=== PATIENT | female | born 1985 | race Caucasian/White ===

== ENCOUNTER → 2018-03-30 | Outpatient (CLI) | payer OTHER ==
[2018-03-30 12:35] LABS: Basophils % (A) 1 %; Eosinophils # (A) 0.1 k/uL (0-0.7); Eosinophils % (A) 2 %; HCT 41.6 % (34.0-46.0); HGB 14.3 gm/dL (11.4-16.0); Lymphocytes # (A) 1.7 k/uL (1.0-4.8); Lymphocytes % (A) 24 %; MCH 29.2 pg (25.0-35.0); MCHC 34.4 g/dL (31.0-37.0); MCV 85.1 fL (80.0-100.0); Mean Platelet Volume 6.8; Monocytes # (A) 0.3 k/uL (0-1.0); Monocytes % (A) 5 %; Neutrophils # (A) 4.6 k/uL (1.3-7.7); Neutrophils % (A) 67 %; Platelet Count 313 k/uL (150-450); RBC 4.89 m/uL (3.80-5.40); RDW 12.5 % (11.5-15.5); WBC 6.9 k/uL (3.8-10.6)
[2018-03-30 12:46] LABS: ALT 29 U/L (9-52); AST 22 U/L (14-36); Albumin 3.8 g/dL (3.5-5.0); Alkaline Phosphatase 80 U/L (38-126); Anion Gap 10 mmol/L; Blood Urea Nitrogen 14 mg/dL (7-17); Calcium 9.1 mg/dL (8.4-10.2); Carbon Dioxide 28 mmol/L (22-30); Chloride 103 mmol/L (98-107); Cholesterol 176 mg/dL (<200); Glucose 89 mg/dL (74-99); HDL Cholesterol 45 mg/dL (40-60); LDL Cholesterol,Calculated 114 mg/dL (0-99); Potassium 4.4 mmol/L (3.5-5.1); Sodium 141 mmol/L (137-145); Total Bilirubin 0.5 mg/dL (0.2-1.3); Total Protein 6.5 g/dL (6.3-8.2); Triglycerides 86 mg/dL (<150)
[2018-03-30 20:10] LABS: Hemoglobin A1C 5.2 % (4.0-6.0)
== END | disposition home or self-care (01) ==
LOC: LABWHC1 12:14
PROVIDERS: ATTEND Family Medicine
DX: R03.0 Elevated blood-pressure reading, without diagnosis of hypertension (principal); F41.9 Anxiety disorder, unspecified; E66.01 Morbid (severe) obesity due to excess calories; Z13.220 Encounter for screening for lipoid disorders
CPT/HCPCS: 36415; 80053; 80061; 82306; 83036; 84443; 85025

== ENCOUNTER 2021-08-07 18:30 | Emergency (ER) | payer OTHER ==
[2021-08-07 18:41] VITALS: RESP 18; TEMP 98
[2021-08-07] MEDS ORDERED: ONDANSETRON 4 MG/2 ML VIAL IVP STA (19:08)
[2021-08-07] MEDS ORDERED: SODIUM CHLORIDE 0.9% 1,000 ML IV STA (19:08)
[2021-08-07] MEDS ORDERED: KETOROLAC 15 MG/ML 1 ML VIAL IVP STA (19:08)
[2021-08-07] MEDS ORDERED: diphenhydrAMINE 50 MG/ML 1 ML VIAL IVP STA (19:08)
--- NOTE | 2021-08-07 19:38 | ED ---
Headache HPI - General Chief Complaint: Headache Stated Complaint: Headache/Blood in Stool Time Seen by Provider: 08/07/21 18:59 Mode of arrival: ambulatory Limitations: no limitations - History of Present Illness Initial Comments: Patient is a 35-year-old female with history of hypertension, presenting to the emergency Department with complaints of a headache right lateral ear pain that started last night. Patient is very anxious during triage. She states that she is supposed to get an MRI on her brain due to an abnormal finding on her eye exam. Patient states she has been googling her symptoms and MRI scans and can not sleep because she is stressing over this. She did schedule the MRI, its in 2 days. She denies any dizziness, lightheadedness, no chest pain or shortness of breath however she does feel like her heart is racing. She does admit to some mild nausea but no vomiting. She's had some diarrhea today. She thinks there may have been a small amount of blood in her however she did drink a red topped just prior to her diarrheal episode is not sure if it sat or not. She has not had any abdominal pain, no further blood in her stool. Pt's mother is here with her and states that she has just been stressing all day because of this. She has not tried anything for her headache at today. She denies being . She is no further complaints at the time. - Related Data Allergies Allergy/AdvReac Type Severity Reaction Status Date / Time No Known Allergies Allergy Verified 08/07/21 18:39 Review of Systems ROS Statement: Those systems with pertinent positive or pertinent negative responses have been documented in the HPI. ROS Other: All systems not noted in ROS Statement are negative. Past Medical History Past Medical History: Hypertension History of Any Multi-Drug Resistant Organisms: None Reported Past Surgical History: Section Past Psychological History: Anxiety Smoking Status: Never smoker Past Alcohol Use History: None Reported Past Drug Use History: Marijuana General Exam - General Exam Comments Initial Comments: GENERAL: Patient is well-developed and well-nourished. Patient is nontoxic and in no acute distress, very anxious. HEAD: Atraumatic, normocephalic. EYES: Pupils equal round and reactive to light, extraocular movements intact, sclera anicteric, conjunctiva are normal. Eyelids were unremarkable. ENT: TMs normal, nares patent, oropharynx clear without exudates. Moist mucous membranes. NECK: Normal range of motion, supple without lymphadenopathy or JVD. LUNGS: Unlabored respirations. Breath sounds clear to auscultation bilaterally and equal. No wheezes rales or rhonchi. HEART: Tachycardic rate and rhythm without murmurs, rubs or gallops. ABDOMEN: Soft, nontender, normoactive bowel sounds. No guarding, no rebound. No masses appreciated. : Deferred MUSCULOSKELETAL: Normal extremities with adequate strength and normal range of motion, no pitting or edema. No clubbing or cyanosis. NEUROLOGICAL: Patient is alert and oriented x 3. Motor and sensory are also intact. Cranial nerves II through XII grossly intact. Symmetrical smile. Normal speech, normal gait. PSYCH: Normal mood, normal affect. SKIN: Warm, Dry, normal turgor, no rashes or lesions noted. Limitations: no limitations Course Vital Signs 08/07/21 08/07/21 18:39 21:01 Temperature 98.0 F Pulse Rate 137 H 92 Respiratory 18 18 Rate Blood Pressure 181/114 159/97 O2 Sat by Pulse 96 95 Oximetry Medical Decision Making - Medical Decision Making She is a 35-year-old female here with complaints of a headache, bilateral ear pressure since yesterday. Patient is scheduled to have an MRI on her brain secondary to abnormal finding in her eye exam. She has been very stressed about this, is not sleeping because of this and is googling her symptoms and possible causes. She does have history hypertension, blood pressures elevated upon arrival and she is also tachycardic. Her mother states that she does have history anxiety and panic attacks. Patient's exam reveals no acute findings other than tachycardia. No acute neuro deficits. Patient was given fluids, pain control, reports improvement in her symptoms. To give her some Benadryl and a small dose of Ativan. She feels better and more relaxed. Patient's mother will be driving her home. Patient's vital signs were rechecked and are within normal limits. I discussed with patient that she can follow up with her primary care regarding her anxiety. She is agreeable to this and is stable for discharge. Return parameters were discussed with parents verbalized understanding. Case discussed with Dr. Latham. Disposition Clinical Impression: Headache, Anxiety Disposition: HOME SELF-CARE Condition: Stable Instructions (If sedation given, give patient instructions): Acute Headache (ED) Additional Instructions: Please return to the Emergency Department if symptoms worsen or any other concerns. May take a Benadryl at night to help with anxiety and to help with sleep. I recommend following up with your primary care physician. Is patient prescribed a controlled substance at d/c from ED?: No Referrals: Toribio Arnett MD [Primary Care Provider] - 1-2 days Time of Disposition: 21:12
[2021-08-07] MEDS ORDERED: LORazepam 2 MG/ML INJ IV STA (20:27)
[2021-08-07 21:04] VITALS: BP 159/97; PULSE 92
== END 2021-08-07 21:31 | disposition home or self-care (01) ==
LOC: EC 18:30
DX: R51.9 Headache, unspecified (principal); F41.9 Anxiety disorder, unspecified; H92.01 Otalgia, right ear; R11.0 Nausea; R19.7 Diarrhea, unspecified; I10 Essential (primary) hypertension
CPT/HCPCS: 99283; 96374; 96375; 96361; J2060; J1200; J2405; J1885

== ENCOUNTER 2021-08-09 18:32 | Emergency (ER) | payer OTHER ==
[2021-08-09] MEDS ORDERED: diphenhydrAMINE 50 MG/ML 1 ML VIAL IVP STA (19:10)
[2021-08-09] MEDS ORDERED: ONDANSETRON 4 MG/2 ML VIAL IVP STA (19:10)
[2021-08-09] MEDS ORDERED: SODIUM CHLORIDE 0.9% 1,000 ML IV STA (19:10)
[2021-08-09] MEDS ORDERED: MORPHINE SULFATE 4 MG/ML SYRINGE IV STA (19:10)
[2021-08-09 19:54] LABS: Basophils % (A) 0 %; Eosinophils # (A) 0.2 k/uL (0-0.7); Eosinophils % (A) 2 %; HGB 14.6 gm/dL (11.4-16.0); Lymphocytes # (A) 1.8 k/uL (1.0-4.8); Lymphocytes % (A) 17 %; MCH 27.4 pg (25.0-35.0); MCHC 33.1 g/dL (31.0-37.0); MCV 82.8 fL (80.0-100.0); Mean Platelet Volume 7.3; Monocytes # (A) 0.5 k/uL (0-1.0); Monocytes % (A) 5 %; Neutrophils % (A) 75 %; Platelet Count 414 k/uL (150-450); RBC 5.32 m/uL (3.80-5.40); RDW 13.8 % (11.5-15.5); WBC 10.7 k/uL (3.8-10.6)
[2021-08-09 20:11] LABS: ALT 31 U/L (4-34); AST 24 U/L (14-36); African American GFR (CKD) >90 (>60 ml/min/1.73 sqM); Albumin 4.4 g/dL (3.5-5.0); Alkaline Phosphatase 114 U/L (38-126); Anion Gap 13 mmol/L; Blood Urea Nitrogen 5 mg/dL (7-17); Calcium 9.5 mg/dL (8.4-10.2); Carbon Dioxide 20 mmol/L (22-30); Chloride 104 mmol/L (98-107); Glucose 120 mg/dL (74-99); Non-African American GFR(CKD) >90 (>60 ml/min/1.73 sqM); Potassium 3.8 mmol/L (3.5-5.1); Sodium 137 mmol/L (137-145); Total Bilirubin 0.5 mg/dL (0.2-1.3); Total Protein 7.7 g/dL (6.3-8.2)
[2021-08-09 20:59] VITALS: PULSE 92; RESP 20
[2021-08-09 21:05] LABS: Appearance,Urine Clear (Clear); Bilirubin,Urine Negative (Negative); Blood,Urine Negative (Negative); Color,Urine Light Yellow; Glucose,Urine (UA) Negative (Negative); Ketones,Urine 1+ (Negative); Leukocyte Esterase,Urine Negative (Negative); Nitrite,Urine Negative (Negative); PH, Urine 6.5 (5.0-8.0); Protein,Urine Negative (Negative); Specific Gravity,Urine 1.004 (1.001-1.035); Urobilinogen,Urine <2.0 mg/dL (<2.0)
[2021-08-09] MEDS ORDERED: ONDANSETRON 4 MG ODT STARTER PACK 2 TAB BTL PO STA (21:36)
[2021-08-09] MEDS ORDERED: ACET/COD 300 MG/30 MG STARTER PACK 6 TAB BTL PO STA (21:36)
--- NOTE | 2021-08-09 21:37 | ED ---
Headache HPI - General Chief Complaint: Headache Stated Complaint: revisit - headache Time Seen by Provider: 08/09/21 18:55 Source: patient, RN notes reviewed Mode of arrival: ambulatory Limitations: no limitations - History of Present Illness Initial Comments: Patient is a 35-year-old female that presents to emergency department complaining of a headache. She notes she had outpatient MRI done earlier this morning. She'll that she was also seen here several days ago for the same complaint. She notes that her headache has since gone on since a few days ago since about 8 out of 10 with no relief from at home medications. She denied any aggravating factors or alleviating factors she was otherwise a well-appearing 35-year-old female in no apparent distress or pain. She denied any chest pain shortness of breath vomiting diarrhea constipation fever fatigue chills. - Related Data Allergies Allergy/AdvReac Type Severity Reaction Status Date / Time No Known Allergies Allergy Verified 08/09/21 18:49 Review of Systems ROS Statement: Those systems with pertinent positive or pertinent negative responses have been documented in the HPI. ROS Other: All systems not noted in ROS Statement are negative. Past Medical History Past Medical History: Hypertension History of Any Multi-Drug Resistant Organisms: None Reported Past Surgical History: Section Past Psychological History: Anxiety Smoking Status: Never smoker Past Alcohol Use History: None Reported Past Drug Use History: Marijuana General Exam Limitations: no limitations General appearance: alert, in no apparent distress, obese Head exam: Present: atraumatic, normocephalic, normal inspection Eye exam: Present: normal appearance, PERRL, EOMI. Absent: scleral icterus, conjunctival injection, periorbital swelling Neck exam: Present: normal inspection Respiratory exam: Present: normal lung sounds bilaterally. Absent: respiratory distress, wheezes, rales, rhonchi, stridor Cardiovascular Exam: Present: regular rate, normal rhythm, normal heart sounds. Absent: systolic murmur, diastolic murmur, rubs, gallop, clicks GI/Abdominal exam: Present: soft, normal bowel sounds. Absent: distended, tenderness, guarding, rebound, rigid Extremities exam: Present: normal inspection, full ROM, normal capillary refill. Absent: tenderness, pedal edema, joint swelling, calf tenderness Neurological exam: Present: alert, oriented X3 Psychiatric exam: Present: normal affect, normal mood Skin exam: Present: warm, dry, intact, normal color. Absent: rash Course Vital Signs 08/09/21 08/09/21 18:45 20:00 Temperature 97.8 F Pulse Rate 91 92 Respiratory 18 20 Rate Blood Pressure 154/92 156/84 O2 Sat by Pulse 97 95 Oximetry Medical Decision Making - Medical Decision Making 35-year-old female complaining of headache. Basic labs, 1 L normal saline, 4 g of morphine, 4 mg of Zofran, 59 g Benadryl ordered. Labs unremarkable. Case discussed with Dr. Wiseman, patient discharge or follow up primary care. Tylenol 3 starter pack and Zofran starter pack will be given prior to discharge. - Lab Data Result diagrams: 08/09/21 19:29 08/09/21 19:29 Lab Results 08/09/21 08/09/21 08/09/21 Range/Units 19:29 19:29 19:29 WBC 10.7 H (3.8-10.6) k/uL RBC 5.32 (3.80-5.40) m/uL Hgb 14.6 (11.4-16.0) gm/dL Hct 44.0 (34.0-46.0) % MCV 82.8 (80.0-100.0) fL MCH 27.4 (25.0-35.0) pg MCHC 33.1 (31.0-37.0) g/dL RDW 13.8 (11.5-15.5) % Plt Count 414 (150-450) k/uL MPV 7.3 Neutrophils % 75 % Lymphocytes % 17 % Monocytes % 5 % Eosinophils % 2 % Basophils % 0 % Neutrophils # 8.0 H (1.3-7.7) k/uL Lymphocytes # 1.8 (1.0-4.8) k/uL Monocytes # 0.5 (0-1.0) k/uL Eosinophils # 0.2 (0-0.7) k/uL Basophils # 0.0 (0-0.2) k/uL Sodium 137 (137-145) mmol/L Potassium 3.8 (3.5-5.1) mmol/L Chloride 104 (98-107) mmol/L Carbon Dioxide 20 L (22-30) mmol/L Anion Gap 13 mmol/L BUN 5 L (7-17) mg/dL Creatinine 0.57 (0.52-1.04) mg/dL Est GFR (CKD-EPI)AfAm >90 (>60 ml/min/1.73 sqM) Est GFR (CKD-EPI)NonAf >90 (>60 ml/min/1.73 sqM) Glucose 120 H (74-99) mg/dL Calcium 9.5 (8.4-10.2) mg/dL Total Bilirubin 0.5 (0.2-1.3) mg/dL AST 24 (14-36) U/L ALT 31 (4-34) U/L Alkaline Phosphatase 114 (38-126) U/L Total Protein 7.7 (6.3-8.2) g/dL Albumin 4.4 (3.5-5.0) g/dL Urine Color Light Yellow Urine Appearance Clear (Clear) Urine pH 6.5 (5.0-8.0) Ur Specific [place] 1.004 (1.001-1.035) Urine Protein Negative (Negative) Urine Glucose (UA) Negative (Negative) Urine Ketones 1+ H (Negative) Urine Blood Negative (Negative) Urine Nitrite Negative (Negative) Urine Bilirubin Negative (Negative) Urine Urobilinogen <2.0 (<2.0) mg/dL Ur Leukocyte Esterase Negative (Negative) Disposition Clinical Impression: Headache Disposition: HOME SELF-CARE Condition: Stable Instructions (If sedation given, give patient instructions): Acute Headache (ED) Additional Instructions: Please return to the Emergency Department if symptoms worsen or any other concerns. Follow-up with primary care 1-2 days. Take medication as prescribed. Is patient prescribed a controlled substance at d/c from ED?: No Referrals: Toribio Arnett MD [Primary Care Provider] - 1-2 days Time of Disposition: 21:37
[2021-08-09 22:14] VITALS: BP 154/84; TEMP 98.4
== END 2021-08-09 22:19 | disposition home or self-care (01) ==
LOC: EC 18:32
DX: R51.9 Headache, unspecified (principal); I10 Essential (primary) hypertension; F12.90 Cannabis use, unspecified, uncomplicated; E66.9 Obesity, unspecified; Z68.43 Body mass index [BMI] 50.0-59.9, adult
CPT/HCPCS: 36415; 80053; 85025; 81003; 99284; 96374; 96375 ×2; 96376; 96361 ×2; J2270; J1200; J2405; S0119

== ENCOUNTER 2021-08-10 19:13 | Emergency (ER) | payer OTHER ==
[2021-08-10 19:30] VITALS: BP 164/110; PULSE 100; RESP 18; TEMP 98
[2021-08-10] MEDS ORDERED: LORazepam 2 MG/ML INJ IV STA (19:43)
[2021-08-10] MEDS ORDERED: MAG HYDROX/AL HYDROX/SIMETH 30 ML, HYOSCYAMINE ELIXIR 10 ML, LIDOCAINE VISCOUS 2% 10 ML PO STA ×3 (19:44)
[2021-08-10] MEDS ORDERED: LORazepam 2 MG/ML INJ IM STA (19:48)
[2021-08-10] MEDS ORDERED: LORazepam 1 MG TAB PO STA (20:43)
--- NOTE | 2021-08-10 20:44 | ED ---
Anxiety HPI - General Chief Complaint: Anxiety Stated Complaint: ear pain Time Seen by Provider: 08/10/21 19:39 Source: patient, RN notes reviewed Mode of arrival: ambulatory - History of Present Illness Initial Comments: Patient is a 35-year-old female that presents to the emergency department complaining of anxiety. She notes that she had an MRI done yesterday morning is been ongoing looking up her symptoms and has increased her stress. She notes that the first time she can emergency room she Ativan which helped her sleep well. She notes that she had difficulty sleeping is anxious and stressed out waiting for results. She's been seen 3 times including today in the past 3 days in the ER. She was otherwise well-appearing 35-year-old female no apparent distress or pain. She denied chest pain shortness of breath headache nausea vomiting diarrhea constipation fever fatigue chills. - Related Data Allergies/Adverse Reactions: Allergies Allergy/AdvReac Type Severity Reaction Status Date / Time No Known Allergies Allergy Verified 08/10/21 19:30 Review of Systems ROS Statement: Those systems with pertinent positive or pertinent negative responses have been documented in the HPI. ROS Other: All systems not noted in ROS Statement are negative. Past Medical History Past Medical History: Hypertension History of Any Multi-Drug Resistant Organisms: None Reported Past Surgical History: Section Past Psychological History: Anxiety Smoking Status: Never smoker Past Alcohol Use History: None Reported Past Drug Use History: Marijuana General Exam General appearance: alert, in no apparent distress, anxious, obese Head exam: Present: atraumatic, normocephalic, normal inspection Eye exam: Present: normal appearance, PERRL, EOMI. Absent: scleral icterus, conjunctival injection, periorbital swelling ENT exam: Present: normal exam, mucous membranes moist, TM's normal bilaterally Neck exam: Present: normal inspection Respiratory exam: Present: normal lung sounds bilaterally. Absent: respiratory distress, wheezes, rales, rhonchi, stridor Cardiovascular Exam: Present: regular rate, normal rhythm, normal heart sounds. Absent: systolic murmur, diastolic murmur, rubs, gallop, clicks GI/Abdominal exam: Present: soft, normal bowel sounds. Absent: distended, tenderness, guarding, rebound, rigid Extremities exam: Present: normal inspection, full ROM, normal capillary refill. Absent: tenderness, pedal edema, joint swelling, calf tenderness Neurological exam: Present: alert, oriented X3 Psychiatric exam: Present: normal affect, normal mood Skin exam: Present: warm, dry, intact, normal color. Absent: rash Course Vital Signs 08/10/21 19:26 Temperature 98 F Pulse Rate 100 Respiratory 18 Rate Blood Pressure 164/110 O2 Sat by Pulse 94 L Oximetry Medical Decision Making - Medical Decision Making 35-year-old female complaining anxiety. Seen 3 times in the last 3 days in the emergency Department for the same complaint. 1 mg of Ativan, GI cocktail given for heartburn. Patient was informed that she needs to contact her primary care for anxiety medications. Patient was also informed to refrain from doing her symptoms as it can cause unnecessary stress and anxiety. Case discussed with Dr. Morales, patient discharge home. Disposition Clinical Impression: Anxiety Disposition: HOME SELF-CARE Condition: Stable Instructions (If sedation given, give patient instructions): Generalized Anxiety Disorder (ED) Additional Instructions: Please return to the Emergency Department if symptoms worsen or any other concerns. Follow-up with primary care for concerns with anxiety medication. Is patient prescribed a controlled substance at d/c from ED?: No Referrals: Toribio Arnett MD [Primary Care Provider] - 1-2 days Time of Disposition: 20:43
== END 2021-08-10 20:56 | disposition home or self-care (01) ==
LOC: EC 19:13
DX: F41.9 Anxiety disorder, unspecified (principal); I10 Essential (primary) hypertension
CPT/HCPCS: 99283; 96372; J2060

== ENCOUNTER 2021-09-28 22:11 | Emergency (ER) | payer OTHER ==
[2021-09-28 22:27] VITALS: TEMP 98.3
[2021-09-28 23:27] LABS: Appearance,Urine Clear (Clear); Bacteria,Urine Rare /hpf; Bilirubin,Urine Negative (Negative); Blood,Urine Trace (Negative); Color,Urine Yellow; Glucose,Urine (UA) Negative (Negative); Ketones,Urine Negative (Negative); Leukocyte Esterase,Urine Negative (Negative); Mucus,Urine Rare /hpf; Nitrite,Urine Negative (Negative); PH, Urine 6.5 (5.0-8.0); Protein,Urine Negative (Negative); RBC,Urine 1 /hpf (0-5); Specific Gravity,Urine 1.024 (1.001-1.035); Squamous Epithelial Cell,Urine 1 /hpf (0-4); Urobilinogen,Urine <2.0 mg/dL (<2.0); WBC,Urine 1 /hpf (0-5)
[2021-09-28] MEDS ORDERED: KETOROLAC 15 MG/ML 1 ML VIAL IVP STA (23:41)
--- NOTE | 2021-09-28 23:45 | XR ---
EXAMINATION TYPE: XR chest 2V DATE OF EXAM: 09/28/2021 COMPARISON: 08/14/2010 HISTORY: Back pain TECHNIQUE: 2 views FINDINGS: Heart and mediastinum are normal. Lungs are clear. Diaphragm is normal. Bony thorax is inta ct. IMPRESSION: Normal chest. No change.
--- NOTE | 2021-09-29 00:25 | CT ---
EXAMINATION TYPE: CT abdomen pelvis wo con DATE OF EXAM: 09/28/2021 COMPARISON: None HISTORY: right side flank pain. CT DLP: 2126.90 mGycm Automated exposure control for dose reduction was used. Images obtained from the diaphragm to the floor the pelvis without contrast. Lung bases are clear. There is no pleural effusion. Heart size is normal. There is no pericardial eff usion. Liver spleen stomach pancreas gallbladder appear intact. The bile ducts are not dilated. There is 3 cm rounded fluid density in the right adnexal region consistent with ovarian cyst. Kidneys show normal size and contour. There is no hydronephrosis. Ureters are not dilated. Bladder distends smoothly. There is no inguinal hernia. There is no free fluid in the pelvis. Lumbar vertebra have normal alignment. Posterior elements are intact. There is no compression fractur e. Bony pelvis is intact. The hip joints are intact. There is no mesenteric edema. There is no ascites or free air. There is no sign of a bowel obstructio n. Terminal ileum appears normal. Appendix appears normal. IMPRESSION: Multiple appendix. 3 cm right ovarian cyst noted.
[2021-09-29 00:39] LABS: Basophils % (A) 0 %; Eosinophils # (A) 0.2 k/uL (0-0.7); Eosinophils % (A) 2 %; HCT 37.5 % (34.0-46.0); HGB 12.5 gm/dL (11.4-16.0); Lymphocytes # (A) 1.8 k/uL (1.0-4.8); Lymphocytes % (A) 19 %; MCH 27.7 pg (25.0-35.0); MCHC 33.3 g/dL (31.0-37.0); MCV 83.3 fL (80.0-100.0); Mean Platelet Volume 7.2; Monocytes # (A) 0.4 k/uL (0-1.0); Monocytes % (A) 4 %; Neutrophils # (A) 6.9 k/uL (1.3-7.7); Neutrophils % (A) 74 %; Platelet Count 382 k/uL (150-450); RDW 14.5 % (11.5-15.5); WBC 9.4 k/uL (3.8-10.6)
[2021-09-29 00:54] VITALS: BP 178/111; PULSE 82; RESP 18
[2021-09-29 01:06] LABS: ALT 23 U/L (4-34); AST 20 U/L (14-36); African American GFR (CKD) >90 (>60 ml/min/1.73 sqM); Alkaline Phosphatase 87 U/L (38-126); Anion Gap 9 mmol/L; Blood Urea Nitrogen 15 mg/dL (7-17); Calcium 9.2 mg/dL (8.4-10.2); Carbon Dioxide 24 mmol/L (22-30); Chloride 103 mmol/L (98-107); Glucose 125 mg/dL (74-99); Lipase 113 U/L (23-300); Non-African American GFR(CKD) >90 (>60 ml/min/1.73 sqM); Potassium 4.1 mmol/L (3.5-5.1); Sodium 136 mmol/L (137-145); Total Bilirubin 0.3 mg/dL (0.2-1.3); Total Protein 6.9 g/dL (6.3-8.2)
[2021-09-29] MEDS ORDERED: CYCLOBENZAPRINE 10MG STARTER 3 TAB BTL PO STA (01:09)
--- NOTE | 2021-09-29 01:09 | ED ---
Back Pain HPI - General Chief Complaint: Back Pain/Injury Stated Complaint: Back Pain Time Seen by Provider: 09/28/21 22:36 Source: patient Limitations: no limitations - History of Present Illness Initial Comments: 36 year-old female patient presents to the emergency department for evaluation of right flank pain and mid upper back pain. States that symptoms have been going on for a month. States the pain is mild and vague but annoying. States she did take ibuprofen without relief. States the pain is intermittent. Feels like an intense tightness. Denies fever or chills. Denies abdominal pain. Denies any hematuria, dysuria, urinary urgency, or frequency. Denies nausea or vomiting. Has had three c-sections, denies any other abdominal surgeries. Denies any falls or injuries. Denies worsening pain with movement or deep breathing. Denies chance of . Patient denies any recent rash, cough, shortness of breath, chest pain, diarrhea, constipation, numbness, tingling, dizziness, weakness, headache, visual changes, or any other complaints. - Related Data Previous Rx's Medication Instructions Recorded Cyclobenzaprine [Flexeril] 10 mg PO TID #15 tab 09/29/21 Allergies Allergy/AdvReac Type Severity Reaction Status Date / Time No Known Allergies Allergy Verified 09/28/21 22:27 Review of Systems ROS Statement: Those systems with pertinent positive or pertinent negative responses have been documented in the HPI. ROS Other: All systems not noted in ROS Statement are negative. Past Medical History Past Medical History: GERD/Reflux, Hypertension History of Any Multi-Drug Resistant Organisms: None Reported Past Surgical History: Section Past Psychological History: Anxiety Smoking Status: Never smoker Past Alcohol Use History: None Reported Past Drug Use History: Marijuana General Exam Limitations: no limitations General appearance: alert, in no apparent distress, other (This is a well- developed, well-nourished adult female patient in no acute distress.) Eye exam: Present: normal appearance, PERRL, EOMI. Absent: scleral icterus, conjunctival injection, periorbital swelling ENT exam: Present: normal exam, normal oropharynx, mucous membranes moist Respiratory exam: Present: normal lung sounds bilaterally. Absent: respiratory distress, wheezes, rales, rhonchi, stridor Cardiovascular Exam: Present: regular rate, normal rhythm, normal heart sounds. Absent: systolic murmur, diastolic murmur, rubs, gallop, clicks GI/Abdominal exam: Present: soft, normal bowel sounds. Absent: distended, tenderness, guarding, rebound, rigid Back exam: Present: normal inspection. Absent: CVA tenderness (R), CVA tenderness (L) Neurological exam: Present: alert, oriented X3, CN II-XII intact Psychiatric exam: Present: normal affect, normal mood Skin exam: Present: warm, dry, intact, normal color. Absent: rash Course Vital Signs 09/28/21 09/29/21 09/29/21 22:24 00:18 00:51 Temperature 98.3 F Pulse Rate 87 78 82 Respiratory 20 16 18 Rate Blood Pressure 149/86 178/111 O2 Sat by Pulse 98 98 98 Oximetry Medical Decision Making - Medical Decision Making 36-year-old female patient presents to the emergency department today for evaluation of mid upper back pain right flank pain. Physical examination was unremarkable. Urinalysis was obtained initially and showed presence of blood. Given flank pain did have labs and CT abdomen and pelvis to rule out kidney stone. CT did show right ovarian cyst no other abnormalities. Labs are unremarkable. Did discuss findings results with the patient. She'll be discharged with Flexeril for musculoskeletal back pain and instructed take ibuprofen. Return parameters were discussed in detail. She verbalizes understanding and agrees with this plan. My attending is Dr. Solis. - Lab Data Result diagrams: 09/29/21 00:05 09/29/21 00:05 Lab Results 09/28/21 09/29/21 09/29/21 Range/Units 22:56 00:05 00:05 WBC 9.4 (3.8-10.6) k/uL RBC 4.50 (3.80-5.40) m/uL Hgb 12.5 (11.4-16.0) gm/dL Hct 37.5 (34.0-46.0) % MCV 83.3 (80.0-100.0) fL MCH 27.7 (25.0-35.0) pg MCHC 33.3 (31.0-37.0) g/dL RDW 14.5 (11.5-15.5) % Plt Count 382 (150-450) k/uL MPV 7.2 Neutrophils % 74 % Lymphocytes % 19 % Monocytes % 4 % Eosinophils % 2 % Basophils % 0 % Neutrophils # 6.9 (1.3-7.7) k/uL Lymphocytes # 1.8 (1.0-4.8) k/uL Monocytes # 0.4 (0-1.0) k/uL Eosinophils # 0.2 (0-0.7) k/uL Basophils # 0.0 (0-0.2) k/uL Sodium (137-145) mmol/L Potassium (3.5-5.1) mmol/L Chloride (98-107) mmol/L Carbon Dioxide (22-30) mmol/L Anion Gap mmol/L BUN (7-17) mg/dL Creatinine (0.52-1.04) mg/dL Est GFR (CKD-EPI)AfAm (>60 ml/min/1.73 sqM) Est GFR (CKD-EPI)NonAf (>60 ml/min/1.73 sqM) Glucose (74-99) mg/dL Calcium (8.4-10.2) mg/dL Total Bilirubin (0.2-1.3) mg/dL AST (14-36) U/L ALT (4-34) U/L Alkaline Phosphatase (38-126) U/L Total Protein (6.3-8.2) g/dL Albumin (3.5-5.0) g/dL Lipase (23-300) U/L Urine Color Yellow Urine Appearance Clear (Clear) Urine pH 6.5 (5.0-8.0) Ur Specific [place] 1.024 (1.001-1.035) Urine Protein Negative (Negative) Urine Glucose (UA) Negative (Negative) Urine Ketones Negative (Negative) Urine Blood Trace H (Negative) Urine Nitrite Negative (Negative) Urine Bilirubin Negative (Negative) Urine Urobilinogen <2.0 (<2.0) mg/dL Ur Leukocyte Esterase Negative (Negative) Urine RBC 1 (0-5) /hpf Urine WBC 1 (0-5) /hpf Ur Squamous Epith Cells 1 (0-4) /hpf Urine Bacteria Rare H (None) /hpf Urine Mucus Rare H (None) /hpf Urine HCG, Qual Not Detected (Not Detectd) 09/29/21 Range/Units 00:05 WBC (3.8-10.6) k/uL RBC (3.80-5.40) m/uL Hgb (11.4-16.0) gm/dL Hct (34.0-46.0) % MCV (80.0-100.0) fL MCH (25.0-35.0) pg MCHC (31.0-37.0) g/dL RDW (11.5-15.5) % Plt Count (150-450) k/uL MPV Neutrophils % % Lymphocytes % % Monocytes % % Eosinophils % % Basophils % % Neutrophils # (1.3-7.7) k/uL Lymphocytes # (1.0-4.8) k/uL Monocytes # (0-1.0) k/uL Eosinophils # (0-0.7) k/uL Basophils # (0-0.2) k/uL Sodium 136 L (137-145) mmol/L Potassium 4.1 (3.5-5.1) mmol/L Chloride 103 (98-107) mmol/L Carbon Dioxide 24 (22-30) mmol/L Anion Gap 9 mmol/L BUN 15 (7-17) mg/dL Creatinine 0.62 (0.52-1.04) mg/dL Est GFR (CKD-EPI)AfAm >90 (>60 ml/min/1.73 sqM) Est GFR (CKD-EPI)NonAf >90 (>60 ml/min/1.73 sqM) Glucose 125 H (74-99) mg/dL Calcium 9.2 (8.4-10.2) mg/dL Total Bilirubin 0.3 (0.2-1.3) mg/dL AST 20 (14-36) U/L ALT 23 (4-34) U/L Alkaline Phosphatase 87 (38-126) U/L Total Protein 6.9 (6.3-8.2) g/dL Albumin 4.0 (3.5-5.0) g/dL Lipase 113 (23-300) U/L Urine Color Urine Appearance (Clear) Urine pH (5.0-8.0) Ur Specific [place] (1.001-1.035) Urine Protein (Negative) Urine Glucose (UA) (Negative) Urine Ketones (Negative) Urine Blood (Negative) Urine Nitrite (Negative) Urine Bilirubin (Negative) Urine Urobilinogen (<2.0) mg/dL Ur Leukocyte Esterase (Negative) Urine RBC (0-5) /hpf Urine WBC (0-5) /hpf Ur Squamous Epith Cells (0-4) /hpf Urine Bacteria (None) /hpf Urine Mucus (None) /hpf Urine HCG, Qual (Not Detectd) - Radiology Data Radiology results: report reviewed, image reviewed 2 views of the chest are obtained. Report was reviewed in its entirety. Imp ression by Dr. Edwards shows normal chest. No change. CT abdomen and pelvis without contrast was obtained. Report is reviewed in its entirety. Impression by Dr. Edwards shows normal appendix. 2 cm right ovarian cyst noted. Disposition Clinical Impression: Back pain, Right ovarian cyst Disposition: HOME SELF-CARE Condition: Good Instructions (If sedation given, give patient instructions): Flank Pain (ED), Back Pain (ED) Additional Instructions: Alternate Tylenol Motrin for pain control. Follow-up through primary care physician for recheck in 1-2 days. Return for any new, worsening, or concerning symptoms. Prescriptions: Cyclobenzaprine [Flexeril] 10 mg PO TID #15 tab Is patient prescribed a controlled substance at d/c from ED?: No Referrals: Toribio Arnett MD [Primary Care Provider] - 1-2 days Time of Disposition: 01:09
== END 2021-09-29 01:23 | disposition home or self-care (01) ==
LOC: EC 22:11
DX: N83.201 Unspecified ovarian cyst, right side (principal); M54.9 Dorsalgia, unspecified; K21.9 Gastro-esophageal reflux disease without esophagitis; I10 Essential (primary) hypertension; F41.9 Anxiety disorder, unspecified; F12.90 Cannabis use, unspecified, uncomplicated
CPT/HCPCS: 99284; 96374; 36415; 80053; 83690; 85025; 81001; 81025; 71046; 74176; J1885

== ENCOUNTER → 2021-10-14 | Outpatient (CLI) | payer OTHER ==
--- NOTE | 2021-10-14 13:22 | US ---
EXAMINATION TYPE: US abdomen comp/pelvis limited DATE OF EXAM: 10/14/2021 COMPARISON: CT 09/28/2021 CLINICAL HISTORY: 36-year-old female R10.9 ABDOMINAL PAIN. Hematuria, right flank pain. TECHNIQUE: Multiple sonographic images of the abdomen and bladder are obtained. FINDINGS: EXAM MEASUREMENTS: Liver Length: 14.8 cm Gallbladder Wall: 0.2 cm CBD: 0.3 cm Spleen: 11.8 cm Right Kidney: 13.9 x 4.7 x 6.6 cm Left Kidney: 13.3 x 5.3 x 7.2 cm Pancreas: Only a small portion of pancreatic body is seen. Suboptimal visualization of the pancreati c head and tail due to shadowing from bowel gas. Liver: Heterogeneous, echogenic, and attenuating. No focal lesion identified. Gallbladder: No stones seen CBD: wnl Spleen: wnl Right Kidney: No hydronephrosis or masses seen Left Kidney: No hydronephrosis or masses seen Upper IVC: wnl Abd Aorta: wnl Bladder: Underdistention limits evaluation. IMPRESSION: 1. Very heterogeneous liver parenchyma suggesting either fatty infiltration or nonspecific hepatocell ular disease. Correlate with LFTs, lipid profile, and patient risk factors. 2. No hydronephrosis.
== END | disposition home or self-care (01) ==
LOC: RADUSWWP 09:04
PROVIDERS: ATTEND Family Medicine
DX: R10.9 Unspecified abdominal pain (principal); R31.9 Hematuria, unspecified
CPT/HCPCS: 76700; 76857

== ENCOUNTER → 2021-12-18 | Outpatient (CLI) | payer OTHER ==
--- NOTE | 2021-12-18 15:35 | US ---
EXAMINATION TYPE: US transvaginal DATE OF EXAM: 12/18/2021 COMPARISON: NONE CLINICAL HISTORY: N83.209 unspecified ovarian cyst. Follow up ovarian cyst, 3, para 3, histor y of 3 c-sections TECHNIQUE: Transvaginal exam only per ordering physician Date of LMP: 12/16/2021 EXAM MEASUREMENTS: Uterus: 9.8 x 4.4 x 4.5 cm Endometrial Stripe: 0.5 cm Right Ovary: not seen Left Ovary: not seen Difficult and limited study due to patient body habitus 1. Uterus: limited visualization due to position 2. Endometrium: appears wnl 3. Right Ovary: not seen due to overlying bowel gas 4. Left Ovary: not seen due to overlying bowel gas 5. Bilateral Adnexa: wnl 6. Posterior cul-de-sac: wnl IMPRESSION: No distinct abnormality appreciated.
== END | disposition home or self-care (01) ==
LOC: RADUSWWP 15:00
PROVIDERS: ATTEND Family Medicine
DX: N83.209 Unspecified ovarian cyst, unspecified side (principal)
CPT/HCPCS: 76830

== ENCOUNTER → 2022-07-04 | Emergency (ER) | payer OTHER ==
[2022-07-04 19:32] VITALS: BP 179/92; PULSE 104; RESP 22; TEMP 98.3
--- NOTE | 2022-07-04 19:53 | ED ---
ENT HPI - General Chief complaint: ENT Stated complaint: R ear pain Time Seen by Provider: 07/04/22 19:34 Source: patient Mode of arrival: ambulatory Limitations: no limitations - History of Present Illness Initial comments: Patient is a 36-year-old female who presents to the emergency department with a chief complaint of right ear pain. Patient states the pain started last week ago. States the pain is mild but consistent. Patient went to urgent care a couple days ago and was given antibiotic drops for external ear infection. Patient states the drops are not working. Patient denies fever, chills, headache, runny nose, congestion, sore throat, cough, shortness of breath, chest pain. Denies trauma to the ear. Denies recent swimming. Does admit to history of seasonal allergies. - Related Data Previous Rx's Medication Instructions Recorded Cyclobenzaprine [Flexeril] 10 mg PO TID #15 tab 09/29/21 Allergies Allergy/AdvReac Type Severity Reaction Status Date / Time No Known Allergies Allergy Verified 07/04/22 19:32 Review of Systems ROS Statement: Those systems with pertinent positive or pertinent negative responses have been documented in the HPI. ROS Other: All systems not noted in ROS Statement are negative. Past Medical History Past Medical History: GERD/Reflux, Hypertension History of Any Multi-Drug Resistant Organisms: None Reported Past Surgical History: Section Past Psychological History: Anxiety Smoking Status: Never smoker Past Alcohol Use History: None Reported Past Drug Use History: Marijuana General Exam Limitations: no limitations General appearance: alert, in no apparent distress Head exam: Present: atraumatic, normocephalic, normal inspection Eye exam: Present: normal appearance, PERRL, EOMI. Absent: scleral icterus, conjunctival injection, periorbital swelling ENT exam: Present: normal oropharynx, normal external ear exam. Absent: TM's normal bilaterally (right ear: Non-erythematous ear canal. No erythema or bulging of the tympanic membrane. Serous fluid behind membrane) Respiratory exam: Present: normal lung sounds bilaterally. Absent: respiratory distress, wheezes, rales, rhonchi, stridor Cardiovascular Exam: Present: regular rate, normal rhythm, normal heart sounds. Absent: systolic murmur, diastolic murmur, rubs, gallop, clicks GI/Abdominal exam: Present: soft, normal bowel sounds. Absent: distended, tenderness, guarding, rebound, rigid Neurological exam: Present: alert, oriented X3, CN II-XII intact Psychiatric exam: Present: normal affect, normal mood Skin exam: Present: warm, dry, intact, normal color. Absent: rash Course Vital Signs 07/04/22 19:28 Temperature 98.3 F Pulse Rate 104 H Respiratory 22 Rate Blood Pressure 179/92 O2 Sat by Pulse 96 Oximetry Medical Decision Making - Medical Decision Making This is a 36-year-old female presents with mild right ear pain. Thorough history and examination were performed. There is effusion behind the right tympanic membrane without erythema or bulging. The ear canal is non- erythematous. There is no tenderness with palpation of the mastoid bone. The pharynx is normal-appearing with no erythema, exudate, or swelling. Patient to take Zyrtec and Flonase for right ear effusion. She is instructed to stop using antibiotic eardrops. She is instructed to return if she develops fever or worsening symptoms. Blood pressure elevated in the emergency department. Patient states she takes lisinopril daily for blood pressure. States her blood pressure was normal at urgent care a couple days ago. Patient states she follows with her regular care provider closely for her blood pressure. Dr. De Jesus is my attending. Disposition Clinical Impression: Acute effusion of left ear Disposition: HOME SELF-CARE Condition: Good Instructions (If sedation given, give patient instructions): Fluid In The Ear (Serous Otitis Media) (ED) Additional Instructions: Take [id number] Claritin and Flonase for the next 2 weeks. If you develop a fever please seek medical attention. Return to the emergency department if you experience new, concerning, or worsening symptoms. Is patient prescribed a controlled substance at d/c from ED?: No Referrals: Toribio Arnett MD [Primary Care Provider] - 1-2 days Time of Disposition: 19:53
== END | disposition home or self-care (01) ==
LOC: EC 19:26
DX: H92.01 Otalgia, right ear (principal); I10 Essential (primary) hypertension

== ENCOUNTER 2022-07-29 06:20 | Day surgery (SDC) | payer OTHER ==
[2022-07-29] MEDS ORDERED: LACTATED RINGERS 1,000 ML IV ONE (06:35)
[2022-07-29 06:50] VITALS: TEMP 96.7
[2022-07-29] MEDS ORDERED: MIDAZOLAM 2 MG/2 ML VIAL IVP ONE (07:05)
[2022-07-29] MEDS ORDERED: LACTATED RINGERS 1,000 ML IV SCH (07:15)
[2022-07-29] MEDS ORDERED: MIDAZOLAM 2 MG/2 ML VIAL ONE (07:26)
[2022-07-29] MEDS ORDERED: fentaNYL (PF) 50 MCG/ML 2 ML AMP ONE (07:26)
--- NOTE | 2022-07-29 08:32 | FL ---
EXAMINATION TYPE: FL guided pain mgmt statistic DATE OF EXAM: 07/29/2022 CLINICAL HISTORY: Low back pain. TECHNIQUE: Fluoroscopy. COMPARISON: None. FINDINGS: Fluoroscopic guidance was provided during pain relief procedure performed by Dr. Simpson. A total of 68 seconds of fluoroscopic time was utilized during the procedure and 1 spot images are a cquired. Single limited acquired shows needle localization at the posterior L4-L5 level. IMPRESSION: As Above.
[2022-07-29] MEDS ORDERED: IV FLUID CONTINUATION 600 ML IV ONE (08:53)
[2022-07-29 08:54] VITALS: RESP 16
--- NOTE | 2022-07-29 08:58 | P.PCN ---
Date of Procedure: 07/29/22 Description of Procedure: Procedure: 1. Lumbar puncture for CSF collection under fluoroscopic PREOPERATIVE DIAGNOSIS: Suspected optic neuritis, eye pain POSTOPERATIVE DIAGNOSIS: Suspected optic neuritis, and eye pain SURGEON: Adrián Simpson ANESTHESIA: Local with 1% lidocaine, and IV sedation : Versed 2 mg, and fentanyl 50 g Sedation supervision start time: 7:30 Sedation supervision end time: 8:46 EBL: None. Specimen removed: 20 mL of CSF in each collecting tube X4 PROCEDURE INDICATION: The patient had history of headache, throbbing type pain. 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 Consulted for lumbar puncture for CSF opening, and closing pressures and CSF collection send it for analysis. PROCEDURE DESCRIPTION: The patient was seen and identified. Risks, benefits, complications, and alternatives were discussed with the patient. The patient agreed to proceed with the procedure and signed the consent, and vital signs were stable. Patient was taken to the procedure area, and time out was completed. The patient was placed in lateral position on procedure. The lumbosacral area was prepped and draped in the usual sterile fashion. Critical pause was taken. Vital signs were closely monitored during the procedure. Posterior superior iliac crest landmarks was identified . The midline lumbar space also identified. Approximately at the level of L4-L5 interspinous space, skin and deeper tissues were localized with 5 mL of 1% lidocaine. Using a 22 gauge 5 spinal needle entered into subarachnoid space, with 2 attempts. Unable to enter into the subarachnoid space, using fluoroscopy in lateral position unable to enter into the subarachnoid space. At this point patient safely turn on her belly, file used under her belly for minimize lumbar lordosis. Skin cleaned with ChloraPrep 2, sterile drapes applied. Again using AP fluoroscopic view L4-L5 interspinous space identified. 4 mL of 1% lidocaine injected for skin and subcutaneous tissue. Needle advanced under fluoroscopic guidance. A lateral view obtained and needle entered close to 2 cm away from epidural space. Then patient turned towards lateral side of the patient. Patient did not notice any shooting pain radiating to her lower extremities. Then needle advanced few centimeters deep. Then Clear CSF came out of the spinal needle notice. 5 mL of CSF fluid collected in each tube 4. Needle was withdrawn intact, skin was cleansed, and bandages were applied. Opening CSF pressure: 29 cm Closing CSF pressure: 14 cm. COMPLICATIONS: None. DISPOSITION / PLANS: The patient was placed in a supine position and transferred to the recovery area in a stable condition for observation. Patient was discharged from the recovery room after meeting discharge criteria. Home discharge instructions given to the patient by the staff. Patient recommended to drink plenty of fluid up to a gallon per day. Patient also recommended to take Tylenol 500 mg every 6 hours as needed if noticed any headache. Also discussed with the patient if noticed any red flag symptoms like unbearable headache, fever, neck stiffness, bowel or bladder problems recommended to come to the nearest emergency. The patient was reexamined prior to discharge.
[2022-07-29 09:34] VITALS: BP 127/75; PULSE 62
[2022-07-29 22:49] LABS: Glucose,CSF 64 mg/dL (40-70); Total Protein,CSF 38 mg/dL (12-60)
== END 2022-07-29 09:47 | disposition home or self-care (01) ==
LOC: ORPAIN 06:20
DX: H46.03 Optic papillitis, bilateral (principal)
CPT/HCPCS: 81025; 84157; 82945; 62270; J2250; J3010; 88108; 99152; 99153

== ENCOUNTER 2022-08-15 19:28 | Emergency (ER) | payer OTHER ==
[2022-08-15 20:10] VITALS: TEMP 98.2
[2022-08-16] MEDS ORDERED: KETOROLAC 15 MG/ML 1 ML VIAL IM STA (00:46)
--- NOTE | 2022-08-16 00:47 | ED ---
Headache HPI - General Chief Complaint: Headache Stated Complaint: Eye issues,Headache Time Seen by Provider: 08/15/22 23:52 Mode of arrival: ambulatory Limitations: no limitations - History of Present Illness Initial Comments: Patient is a 36-year-old female presenting with chief complaint of tingling to the right side of the face. Patient states that earlier today she fell lives on sensation, this was accompanied by mild headache. Patient noted that at the time her blood pressure was elevated, she states that in the past she has had headaches with elevated blood pressure. At the time of presentation patient states that symptoms have completely dissipated. Patient currently follows with neurology for papilledema discovered on routine eye exam, recently received MRI and lumbar puncture. She denies any headache, vision or hearing changes, nausea, vomiting, chest pain, shortness of breath, numbness, tingling, weakness, abdominal pain, dysuria, hematuria. - Related Data Home Medications Medication Instructions Recorded Confirmed Citalopram Hydrobromide [CeleXA] 20 mg PO DAILY 07/25/22 07/25/22 Lisinopril-Hctz 10-12.5 mg 1 tab PO DAILY 07/25/22 07/25/22 [Zestoretic 10-12.5] Allergies Allergy/AdvReac Type Severity Reaction Status Date / Time No Known Allergies Allergy Verified 08/15/22 20:10 Review of Systems ROS Statement: Those systems with pertinent positive or pertinent negative responses have been documented in the HPI. ROS Other: All systems not noted in ROS Statement are negative. Past Medical History Past Medical History: Eye Disorder, GERD/Reflux, Hypertension Additional Past Medical History / Comment(s): increased pressure in eyes, fatty liver History of Any Multi-Drug Resistant Organisms: None Reported Past Surgical History: Section Additional Past Surgical History / Comment(s): C/S x3, wisdom teeth pulled Past Anesthesia/Blood Transfusion Reactions: Previous Problems w/ Anesthesia Additional Past Anesthesia/Blood Transfusion Reaction / Comment(s): spinal headache w/one of C/S-had blood patch Past Psychological History: Anxiety Smoking Status: Never smoker Past Alcohol Use History: None Reported Past Drug Use History: None Reported General Exam Limitations: no limitations General appearance: alert, in no apparent distress Head exam: Present: atraumatic, normocephalic, normal inspection Eye exam: Present: normal appearance, PERRL, EOMI. Absent: scleral icterus, conjunctival injection, periorbital swelling Pupils: Present: normal accommodation Neck exam: Present: normal inspection, full ROM. Absent: tenderness Respiratory exam: Present: normal lung sounds bilaterally. Absent: respiratory distress, wheezes, rales, rhonchi, stridor Cardiovascular Exam: Present: regular rate, normal rhythm, normal heart sounds. Absent: systolic murmur, diastolic murmur, rubs, gallop, clicks Extremities exam: Present: normal inspection, full ROM Neurological exam: Present: alert, oriented X3, CN II-XII intact Expanded Patient oriented to: Present: person, place, time Speech: Present: fluid speech Cranial nerves: EOM's Intact: Normal, Facial Sensation: Normal Cerebellar function: Finger to Nose: Normal, Heel to Hernandez: Normal Sensory exam: Upper Extremity Light Touch: Normal, Lower Extremity Light Touch: Normal Motor strength exam: RUE: 5, LUE: 5, RLE: 5, LLE: 5 Eye Response: (4) open spontaneously Motor Response: (6) obeys commands Verbal Response: (5) oriented Jocelyn Total: 15 Psychiatric exam: Present: normal affect, normal mood Skin exam: Present: warm, dry, intact, normal color. Absent: rash Course Vital Signs 08/15/22 08/16/22 08/16/22 20:09 00:39 01:02 Temperature 98.2 F 98.2 F Pulse Rate 101 H 81 80 Respiratory 20 17 20 Rate Blood Pressure 197/137 177/99 148/102 O2 Sat by Pulse 98 98 99 Oximetry Medical Decision Making - Medical Decision Making Patient is a 36-year-old female presenting with chief complaint of tingling to the right side of the face and mild headache. Patient states that symptoms started today, at time of presentation symptoms have completely dissipated. On examination there are no focal neurological deficits, extraocular motions are intact, PERRLA, full strength and sensation of the upper and lower extremities, facial movement and sensation are intact. Headache is likely influence by blood pressure. Educated on supportive treatment and importance of follow-up. Follow- up with PCP and neurologist. Report back to ER with any new or worsening symptoms. Discussed return parameters and answered all questions. Patient conveyed verbal understanding and agreed to the plan. I discussed this case in detail with my attending Dr. London. Disposition Clinical Impression: Headache Disposition: HOME SELF-CARE Condition: Good Instructions (If sedation given, give patient instructions): Acute Headache (ED) Additional Instructions: Follow-up with PCP and your neurologist. Report back to ER with any new or worsening symptoms. Take Motrin and Tylenol as needed for headache. Is patient prescribed a controlled substance at d/c from ED?: No Referrals: Toribio Arnett MD [Primary Care Provider] - 1-2 days Time of Disposition: 00:47
[2022-08-16 01:12] VITALS: BP 148/102; PULSE 80; RESP 20
== END 2022-08-16 01:12 | disposition home or self-care (01) ==
LOC: EC 19:28
DX: R51.9 Headache, unspecified (principal); R20.2 Paresthesia of skin; K21.9 Gastro-esophageal reflux disease without esophagitis; I10 Essential (primary) hypertension; F41.9 Anxiety disorder, unspecified; Z79.899 Other long term (current) drug therapy
CPT/HCPCS: 96372; 99283

== ENCOUNTER → 2022-10-06 | Outpatient (CLI) | payer OTHER ==
--- NOTE | 2022-10-07 07:07 | US ---
EXAMINATION TYPE: US pelvic complete DATE OF EXAM: 10/06/2022 COMPARISON: US 12/18/2021 CLINICAL HISTORY: E28.2 Polycystic ovary syndrome. Pt states RLQ pain TECHNIQUE: Transabdominal (TA). Transabdominal sonographic images of the pelvis were acquired. Transvaginal sonographic images were attempted, however no diagnotic quality obtained Date of LMP: 5 days ago EXAM MEASUREMENTS: Uterus: 10.2 x 4.6 x 5.7 cm Endometrial Stripe: 0.8 cm Right Ovary: 3.8 x 3.7 x 3.3 cm Limited and difficult study due to large pt body habitus 1. Uterus: Anteverted Visualized portions appeared wnl 2. Endometrium: Appeared wnl 3. Right Ovary: Cyst= 3.1 x 2.9 x 2.7 cm 4. Left Ovary: Obscured by overlying bowel gas, and large pt body habitus 5. Bilateral Adnexa: wnl 6. Posterior cul-de-sac: wnl IMPRESSION: * Significantly limited examination due to patient's body habitus. * No gross evidence of acute pelvic process. * Right ovarian 3.1 cm simple appearing cyst.
== END | disposition home or self-care (01) ==
LOC: RADUSWWP 16:05
PROVIDERS: ATTEND Family Medicine
DX: N83.291 Other ovarian cyst, right side (principal)
CPT/HCPCS: 76856

== ENCOUNTER → 2022-10-22 | Outpatient (CLI) | payer OTHER ==
--- NOTE | 2022-10-22 09:45 | USB ---
Reason for Exam: Clinical finding. Patient History: Menarche at age 12. First Full-Term at age 24. Risk Values: Luz Maria 5 year model risk: 0.5%. NCI Lifetime model risk: 10.2%. Technique: Method: Targeted. Findings: The area of palpable concern of the right breast, the axilla of the right breast and the retroareolar of the right breast were scanned. There is an isoechoic mass at the site of clinical concern in the right breast 11:00 position measuring 2.7 x 2.8 x 1.8 cm compatible with a lipoma. No additional masses are present at this time.. Overall Assessment: Benign, BI-RAD 2 Management: Screening Mammogram of both breasts in 1 year. A clinical breast exam by your physician is recommended on an annual basis and results should be correlated with mammographic findings. This exam should not preclude additional follow-up of suspicious palpable abnormalities. Results were given to the patient verbally at the time of exam. Electronically signed and approved by: Bogdan Warren M.D. Radiologis
--- NOTE | 2022-10-22 12:08 | MM ---
Reason for Exam: Clinical finding. Indicated Problems: Lump or thickening of the right side (size 10) for 5 Month(s). Patient History: Menarche at age 12. First Full-Term at age 24. Last menstrual period: 10/01/2022 Risk Values: Luz Maria 5 year model risk: 0.5%. NCI Lifetime model risk: 10.2%. Tissue Density: There are scattered fibroglandular densities. Findings: Analyzed By CAD. No distinct mass or distortion. No suspicious cluster of microcalcifications. Overall Assessment: Incomplete: need additional imaging evaluation, BI-RAD 0 Management: Diagnostic Breast Ultrasound of the right breast. A clinical breast exam by your physician is recommended on an annual basis and results should be correlated with mammographic findings. This exam should not preclude additional follow-up of suspicious palpable abnormalities. Results were given to the patient verbally at the time of exam. Electronically signed and approved by: Bogdan Warren M.D. Radiologis
== END | disposition home or self-care (01) ==
LOC: RADMAMWWP 08:50
PROVIDERS: ATTEND Family Medicine
DX: N63.10 Unspecified lump in the right breast, unspecified quadrant (principal)
CPT/HCPCS: 77062; 77066

== ENCOUNTER 2023-10-16 17:40 | Emergency (ER) | payer OTHER ==
--- NOTE | 2023-10-16 18:10 | ED ---
General Adult HPI - General Source: patient, RN notes reviewed Mode of arrival: ambulatory Limitations: no limitations <Tiffanie Jiménez - Last Filed: 10/16/23 18:09> <Jose De Jesus - Last Filed: 10/17/23 16:52> - General Chief complaint: Back Pain/Injury Stated complaint: back pain - History of Present Illness Initial comments: 1-year-old female presents to the emergency department chief complaint of right- sided back pain. She reports that this has been present for quite some time but has been getting worse recently. She states that she has had this pain in the past and has been related to ovarian cysts. She states the pain is a 5 out of 10. Denies any nausea, vomiting, fever, chills. (Tiffanie Jiménez) 38-year-old female with right-sided flank pain which is been present for the past 7 months. No fever. No vomiting. Pain worse with deep inspiration. no hematuria. she does report urinary frequency. (Jose De Jesus) - Related Data Home Medications Medication Instructions Recorded Confirmed Citalopram Hydrobromide [CeleXA] 20 mg PO DAILY 07/25/22 07/25/22 Lisinopril-Hctz 10-12.5 mg 1 tab PO DAILY 07/25/22 07/25/22 [Zestoretic 10-12.5] Allergies Allergy/AdvReac Type Severity Reaction Status Date / Time No Known Allergies Allergy Verified 10/16/23 17:56 Review of Systems ROS Other: All systems not noted in ROS Statement are negative. <Tiffanie Jiménez - Last Filed: 10/16/23 18:09> ROS Other: All systems not noted in ROS Statement are negative. <Jose De Jesus - Last Filed: 10/17/23 16:52> ROS Statement: Those systems with pertinent positive or pertinent negative responses have been documented in the HPI. Past Medical History Past Medical History: Eye Disorder, GERD/Reflux, Hypertension Additional Past Medical History / Comment(s): increased pressure in eyes, fatty liver History of Any Multi-Drug Resistant Organisms: None Reported Past Surgical History: Section Additional Past Surgical History / Comment(s): C/S x3, wisdom teeth pulled Past Anesthesia/Blood Transfusion Reactions: Previous Problems w/ Anesthesia Additional Past Anesthesia/Blood Transfusion Reaction / Comment(s): spinal headache w/one of C/S-had blood patch Past Psychological History: Anxiety Smoking Status: Never smoker Past Alcohol Use History: None Reported Past Drug Use History: None Reported <Tiffanie Jiménez - Last Filed: 10/16/23 18:09> General Exam Limitations: no limitations <Tiffanie Jiménez - Last Filed: 10/16/23 18:09> General appearance: alert, in no apparent distress Head exam: Present: atraumatic, normocephalic Eye exam: Present: normal appearance, PERRL ENT exam: Present: normal exam Neck exam: Present: normal inspection. Absent: tenderness, meningismus Respiratory exam: Present: normal lung sounds bilaterally. Absent: respiratory distress, wheezes Cardiovascular Exam: Present: regular rate, normal rhythm GI/Abdominal exam: Present: soft. Absent: distended, tenderness, guarding, rebound Neurological exam: Present: alert, oriented X3, CN II-XII intact. Absent: motor sensory deficit Psychiatric exam: Present: normal affect, normal mood Skin exam: Present: warm, dry, intact <LizaJose Alvarez - Last Filed: 10/17/23 16:52> - General Exam Comments Initial Comments: Visual Physical Exam Vital signs reviewed General: Well-appearing, nontoxic, no acute distress. Head: Normocephalic, atraumatic Eyes: PERRLA, EOMI ENT: Airway patent Chest: Nonlabored breathing Skin: No visual rash, normal skin tone Neuro: Alert and oriented 3 Musculoskeletal: No gross abnormalities (Tiffanie Jiménez) Course Vital Signs 10/16/23 10/16/23 10/16/23 17:53 20:37 21:00 Temperature 97.3 F L Pulse Rate 100 110 H Respiratory 20 20 20 Rate Blood Pressure 188/110 180/122 156/123 O2 Sat by Pulse 98 96 Oximetry 10/16/23 10/17/23 10/17/23 22:25 00:00 02:55 Temperature 98.6 F Pulse Rate 89 89 Respiratory 18 20 18 Rate Blood Pressure 139/81 132/75 138/88 O2 Sat by Pulse 96 95 98 Oximetry Medical Decision Making <Tiffanie Jiménez - Last Filed: 10/16/23 18:09> - Lab Data Result diagrams: 10/16/23 21:51 10/16/23 21:51 <Jose De Jesus N - Last Filed: 10/17/23 16:52> - Medical Decision Making I preformed the quick note portion of this chart. Electronically signed by Tiffanie Jiménez PA-C (Tiffanie Jiménez) Was pt. sent in by a medical professional or institution ([facility], [facility], urgent care, hospital, or senior care...) When possible be specific @ -[No] Did you speak to anyone other than the patient for history (EMS, parent, family, police, friend...)? What history was obtained from this source @ -[No] Did you review nursing and triage notes (agree or disagree)? Why? @ -[I reviewed and agree with nursing and triage notes] Were old charts reviewed (outside hosp., previous admission, EMS record, old EKG, old radiological studies, urgent care reports/EKG's, senior care records)? Report findings @ -[No old charts were reviewed] Differential Diagnosis (chest pain, altered mental status, abdominal pain women, abdominal pain men, vaginal bleeding, weakness, fever, dyspnea, syncope, hea dache, dizziness, GI bleed, back pain, seizure, CVA, palpatations, mental health, musculoskeletal)? @ -[Differential Abdominal Pain Women: Appendicitis, Cholecystitis, diverticulosis, ischemic bowel, pancreatitis, hepatitis, UTI, gastroenteritis, AAA, incarcerated hernia, bowel obstruction, constipation, inflammatory bowel, hepatitis, peptic ulcer disease, splenic infarction, perforated viscus, vulvitis, ovarian torsion, PID, kidney stone, placenta abruption, this is not meant to be an all-inclusive list EKG interpreted by me (3pts min.). @ Sinus tachycardia rate of 105, SD interval 140, castration 85, QTC [address] segment elevation. X-rays interpreted by me (1pt min.). @ -Chest x-ray and KUB negative for acute findings. CT interpreted by me (1pt min.). @ -CT chest and abdomen pelvis has been ordered, results pending. U/S interpreted by me (1pt. min.). @ -[None done] What testing was considered but not performed or refused? (CT, X-rays, U/S, labs)? Why? @ -[None] What meds were considered but not given or refused? Why? @ -[None] Did you discuss the management of the patient with other professionals (professionals i.e. Dr., PA, [facility], lab, RT, psych nurse, social security assessor, roll forming machine set up mechanic, teacher, antisubmarine weapons officer, case management director)? Give summary @ -[No] Was smoking cessation discussed for >3mins.? @ -[No] Was critical care preformed (if so, how long)? @ -[No] Were there social determinants of health that impacted care today? How? (Homelessness, low income, unemployed, alcoholism, drug addiction, transportation, low edu. Level, literacy, decrease access to med. care, senior care, rehab)? @ -[No] Was there de-escalation of care discussed even if they declined (Discuss DNR or withdrawal of care, Hospice)? DNR status @ -[No] What co-morbidities impacted this encounter? (DM, HTN, Smoking, COPD, CAD, Cancer, CVA, ARF, Chemo, Hep., AIDS, mental health diagnosis, sleep apnea, morbid obesity)? @ -[None] Was patient admitted / discharged? Hospital course, mention meds given and route, prescriptions, significant lab abnormalities, going to OR and other pertinent info. @Care signed out to Dr. London awaiting CT imaging and reevaluation. (Jose De Jesus) - Lab Data Lab Results 10/16/23 10/16/23 10/16/23 Range/Units 18:52 18:52 21:51 WBC 10.5 (3.8-10.6) k/uL RBC 5.25 (3.80-5.40) m/uL Hgb 14.6 (11.4-16.0) gm/dL Hct 44.2 (34.0-46.0) % MCV 84.2 (80.0-100.0) fL MCH 27.9 (25.0-35.0) pg MCHC 33.1 (31.0-37.0) g/dL RDW 14.1 (11.5-15.5) % Plt Count 352 (150-450) k/uL MPV 7.4 Neutrophils % 76 % Lymphocytes % 17 % Monocytes % 4 % Eosinophils % 1 % Basophils % 0 % Neutrophils # 8.0 H (1.3-7.7) k/uL Lymphocytes # 1.8 (1.0-4.8) k/uL Monocytes # 0.5 (0-1.0) k/uL Eosinophils # 0.1 (0-0.7) k/uL Basophils # 0.0 (0-0.2) k/uL PT (10.0-12.5) sec INR (<1.2) APTT (22.0-30.0) sec D-Dimer (<0.60) mg/L FEU Sodium (137-145) mmol/L Potassium (3.5-5.1) mmol/L Chloride (98-107) mmol/L Carbon Dioxide (22-30) mmol/L Anion Gap mmol/L BUN (7-17) mg/dL Creatinine (0.52-1.04) mg/dL Est GFR (CKD-EPI)AfAm (>60 ml/min/1.73 sqM) Est GFR (CKD-EPI)NonAf (>60 ml/min/1.73 sqM) Glucose (74-99) mg/dL Calcium (8.4-10.2) mg/dL Total Bilirubin (0.2-1.3) mg/dL AST (14-36) U/L ALT (4-34) U/L Alkaline Phosphatase (38-126) U/L Total Protein (6.3-8.2) g/dL Albumin (3.5-5.0) g/dL Urine Color Colorless Urine Appearance Clear (Clear) Urine pH 8.0 (5.0-8.0) Ur Specific [place] 1.011 (1.001-1.035) Urine Protein Negative (Negative) Urine Glucose (UA) Negative (Negative) Urine Ketones Negative (Negative) Urine Blood Negative (Negative) Urine Nitrite Negative (Negative) Urine Bilirubin Negative (Negative) Urine Urobilinogen <2.0 (<2.0) mg/dL Ur Leukocyte Esterase Negative (Negative) Urine HCG, Qual Not Detected (Not Detectd) 10/16/23 10/16/23 Range/Units 21:51 21:51 WBC (3.8-10.6) k/uL RBC (3.80-5.40) m/uL Hgb (11.4-16.0) gm/dL Hct (34.0-46.0) % MCV (80.0-100.0) fL MCH (25.0-35.0) pg MCHC (31.0-37.0) g/dL RDW (11.5-15.5) % Plt Count (150-450) k/uL MPV Neutrophils % % Lymphocytes % % Monocytes % % Eosinophils % % Basophils % % Neutrophils # (1.3-7.7) k/uL Lymphocytes # (1.0-4.8) k/uL Monocytes # (0-1.0) k/uL Eosinophils # (0-0.7) k/uL Basophils # (0-0.2) k/uL PT 9.8 L (10.0-12.5) sec INR 0.9 (<1.2) APTT 23.4 (22.0-30.0) sec D-Dimer 0.61 H (<0.60) mg/L FEU Sodium 138 (137-145) mmol/L Potassium 4.5 (3.5-5.1) mmol/L Chloride 106 (98-107) mmol/L Carbon Dioxide 19 L (22-30) mmol/L Anion Gap 13 mmol/L BUN 12 (7-17) mg/dL Creatinine 0.63 (0.52-1.04) mg/dL Est GFR (CKD-EPI)AfAm >90 (>60 ml/min/1.73 sqM) Est GFR (CKD-EPI)NonAf >90 (>60 ml/min/1.73 sqM) Glucose 137 H (74-99) mg/dL Calcium 9.7 (8.4-10.2) mg/dL Total Bilirubin 0.3 (0.2-1.3) mg/dL AST 23 (14-36) U/L ALT 27 (4-34) U/L Alkaline Phosphatase 95 (38-126) U/L Total Protein 7.9 (6.3-8.2) g/dL Albumin 4.6 (3.5-5.0) g/dL Urine Color Urine Appearance (Clear) Urine pH (5.0-8.0) Ur Specific [place] (1.001-1.035) Urine Protein (Negative) Urine Glucose (UA) (Negative) Urine Ketones (Negative) Urine Blood (Negative) Urine Nitrite (Negative) Urine Bilirubin (Negative) Urine Urobilinogen (<2.0) mg/dL Ur Leukocyte Esterase (Negative) Urine HCG, Qual (Not Detectd) Disposition <Tiffanie Jiménez - Last Filed: 10/16/23 18:09> Is patient prescribed a controlled substance at d/c from ED?: No <Jose De Jesus - Last Filed: 10/17/23 16:52> Clinical Impression: Flank pain Disposition: HOME SELF-CARE Condition: Good Instructions (If sedation given, give patient instructions): Flank Pain (ED) Referrals: Toribio Arnett MD [Primary Care Provider] - 1-2 days
[2023-10-16] MEDS ORDERED: KETOROLAC 15 MG/ML 1 ML VIAL IVP STA (18:49)
[2023-10-16 19:15] LABS: Appearance,Urine Clear (Clear); Bilirubin,Urine Negative (Negative); Blood,Urine Negative (Negative); Color,Urine Colorless; Glucose,Urine (UA) Negative (Negative); Ketones,Urine Negative (Negative); Leukocyte Esterase,Urine Negative (Negative); Nitrite,Urine Negative (Negative); Protein,Urine Negative (Negative); Specific Gravity,Urine 1.011 (1.001-1.035); Urobilinogen,Urine <2.0 mg/dL (<2.0)
--- NOTE | 2023-10-16 20:24 | XR ---
EXAMINATION TYPE: XR chest 2V DATE OF EXAM: 10/16/2023 7:30 PM CLINICAL INDICATION:Female, 38 years old with history of rt flank pain; [facility] COMPARISON: None TECHNIQUE: XR chest 2V Frontal and lateral views of the chest. FINDINGS: Lines/Tubes: No indwelling lines are seen. Lungs/Pleura: There is no evidence of pleural effusion, focal consolidation, or pneumothorax. Pulmonary vascularity: Unremarkable. Heart/mediastinum: Cardiomediastinal silhouette is unremarkable. Normal heart size. Musculoskeletal: No acute osseous pathology. Mild degenerative changes of the spine. Other findings: None IMPRESSION: No acute cardiopulmonary abnormality.
--- NOTE | 2023-10-16 20:55 | XR ---
EXAMINATION TYPE: XR KUB DATE OF EXAM: 10/16/2023 COMPARISON: NONE HISTORY: Pain TECHNIQUE: Single supine KUB image of the abdomen is obtained FINDINGS: Small bowel demonstrates no evidence for dilatation or air fluid levels. Gas and fecal material is seen in non-distended colon. No convincing evidence for pneumoperitoneum. No unusual calcifications. The lung bases are clear. The osseous structures are intact. IMPRESSION: 1. Overall nonobstructive bowel gas pattern.
[2023-10-16] MEDS ORDERED: SODIUM CHLORIDE 0.9% 500 ML 500 ML IV ONE (21:18)
[2023-10-16] MEDS ORDERED: HYDROmorphone 0.5 MG/0.5 ML SYRINGE IVP STA (21:18)
[2023-10-16 21:59] LABS: Basophils % (A) 0 %; Eosinophils # (A) 0.1 k/uL (0-0.7); Eosinophils % (A) 1 %; HCT 44.2 % (34.0-46.0); HGB 14.6 gm/dL (11.4-16.0); Lymphocytes # (A) 1.8 k/uL (1.0-4.8); Lymphocytes % (A) 17 %; MCH 27.9 pg (25.0-35.0); MCHC 33.1 g/dL (31.0-37.0); MCV 84.2 fL (80.0-100.0); Mean Platelet Volume 7.4; Monocytes # (A) 0.5 k/uL (0-1.0); Monocytes % (A) 4 %; Neutrophils % (A) 76 %; Platelet Count 352 k/uL (150-450); RBC 5.25 m/uL (3.80-5.40); RDW 14.1 % (11.5-15.5); WBC 10.5 k/uL (3.8-10.6)
[2023-10-16 22:18] LABS: INR 0.9 (<1.2); Partial Thromboplastin Time 23.4 sec (22.0-30.0); Prothrombin Time 9.8 sec (10.0-12.5)
[2023-10-16 22:26] VITALS: PULSE 89
[2023-10-16 22:30] LABS: ALT 27 U/L (4-34); AST 23 U/L (14-36); African American GFR (CKD) >90 (>60 ml/min/1.73 sqM); Albumin 4.6 g/dL (3.5-5.0); Alkaline Phosphatase 95 U/L (38-126); Anion Gap 13 mmol/L; Blood Urea Nitrogen 12 mg/dL (7-17); Calcium 9.7 mg/dL (8.4-10.2); Carbon Dioxide 19 mmol/L (22-30); Chloride 106 mmol/L (98-107); Glucose 137 mg/dL (74-99); Non-African American GFR(CKD) >90 (>60 ml/min/1.73 sqM); Potassium 4.5 mmol/L (3.5-5.1); Sodium 138 mmol/L (137-145); Total Bilirubin 0.3 mg/dL (0.2-1.3); Total Protein 7.9 g/dL (6.3-8.2)
--- NOTE | 2023-10-17 01:21 | CT ---
EXAM: CT Abdomen and Pelvis With Intravenous Contrast CLINICAL HISTORY: pain TECHNIQUE: Axial computed tomography images of the abdomen and pelvis with intravenous contrast. CTDI is 36.06 mGy and DLP is 2148.1 mGy-cm. This CT exam was performed using one or more of the following dose reduction techniques: automated exposure control, adjustment of the mA and/or kV according to patient size, and/or use of iterative reconstruction technique. COMPARISON: 09/28/2021. FINDINGS: Lung bases: Unremarkable. No mass. No consolidation. ABDOMEN: Liver: Unremarkable. No mass. Gallbladder and bile ducts: Unremarkable. No calcified stones. No ductal dilation. Pancreas: Unremarkable. No mass. No ductal dilation. Spleen: Unremarkable. No splenomegaly. Adrenals: Unremarkable. No mass. Kidneys and ureters: Unremarkable. No solid mass. No hydronephrosis. Stomach and bowel: No obstruction or ileus. No evidence for diverticulitis. PELVIS: Appendix: No findings to suggest acute appendicitis. Bladder: Unremarkable. No mass. Reproductive: 2.7 cm right adnexal/ovarian cyst. Uterus and left ovary are unremarkable. ABDOMEN and PELVIS: Intraperitoneal space: No free air. No free fluid. Bones/joints: No acute fracture. Degenerative changes of the lower lumbar spine. Soft tissues: Unremarkable. Vasculature: Unremarkable. No abdominal aortic aneurysm. Lymph nodes: Unremarkable. No enlarged lymph nodes. IMPRESSION: No acute abnormality. Redemonstrated right ovarian probable cyst. No obstruction or ileus. No obstructive uropathy.
--- NOTE | 2023-10-17 01:34 | CT ---
EXAM: CT Angiography Chest With Intravenous Contrast CLINICAL HISTORY: tachy, pos dimer, cp TECHNIQUE: Axial computed tomographic angiography images of the chest with intravenous contrast. CTDI is 36.06 mGy and DLP is 2148.1 mGy-cm. This CT exam was performed using one or more of the following dose reduction techniques: automated exposure control, adjustment of the mA and/or kV according to patient size, and/or use of iterative reconstruction technique. 3D and MIP reconstructed images were created and reviewed. COMPARISON: No relevant prior studies available. FINDINGS: Pulmonary arteries: Study limited by relatively weak contrast bolus within the pulmonary arteries. No pulmonary embolism. Aorta: No thoracic aortic aneurysm or dissection. Lungs: No focal lobar consolidation. Ill-defined bilateral lower lobe atelectasis. Pleural space: No pleural effusion. No pneumothorax. Heart: Borderline cardiomegaly. No pericardial effusion. No evidence of RV dysfunction. Bones/joints: No acute fracture. Soft tissues: Unremarkable. Lymph nodes: Unremarkable. No enlarged lymph nodes. IMPRESSION: No pulmonary embolism. Limited examination is a weak contrast bolus. Mild bibasilar atelectasis. Borderline cardiomegaly.
[2023-10-17] MEDS ORDERED: ACET/COD 300 MG/30 MG STARTER PACK 6 TAB BTL PO STA (02:38)
[2023-10-17] MEDS ORDERED: MORPHINE SULFATE 4 MG/ML SYRINGE IV STA (02:38)
[2023-10-17 03:13] VITALS: BP 138/88; RESP 18; TEMP 98.6
== END 2023-10-17 02:57 | disposition home or self-care (01) ==
LOC: EC 17:40
DX: K76.0 Fatty (change of) liver, not elsewhere classified (principal); I10 Essential (primary) hypertension; Z86.59 Personal history of other mental and behavioral disorders
CPT/HCPCS: 99284; 96374; 96375 ×2; 96361; 36415; 93005; 85379; 80053; 85025; 85610; 85730; 81003; 81025; 71046; 74018; 71275; 74177; J2270; J1885; J1170; Q9967

== ENCOUNTER → 2023-12-10 | Outpatient (CLI) | payer OTHER ==
[2023-12-10 18:17] LABS: Basophils # (A) 0.03 X 10*3/uL (0.00-0.10); Basophils % (A) 0.4 %; Eosinophils # (A) 0.23 X 10*3/uL (0.04-0.35); Eosinophils % (A) 3.3 %; HCT 43.3 % (37.2-46.3); HGB 13.7 g/dL (12.0-15.0); Lymphocytes # (A) 1.69 X 10*3/uL (0.90-5.00); Lymphocytes % (A) 24.4 %; MCH 26.9 pg (27.0-32.0); MCHC 31.6 g/dL (32.0-37.0); MCV 85.1 FL (80.0-97.0); Mean Platelet Volume 10.1 FL (9.5-12.2); Monocytes % (A) 7.2 %; NRBC Per 100 WBC 0 X 10*3/uL (0.00-0.01); Neutrophils # (A) 4.47 X 10*3/uL (1.80-7.70); Neutrophils % (A) 64.6 %; Platelet Count 350 X 10*3/uL (140-440); RBC 5.09 X 10*6/uL (4.10-5.20); RDW 13.6 % (11.5-14.5); WBC 6.93 X 10*3/uL (4.50-10.00)
[2023-12-10 18:25] LABS: Erythrocyte Sedimentation Rate 13 mm/Hr (0-20)
[2023-12-10 21:49] LABS: Gliadin AB IgA, Deaminated Negative (Negative); Gliadin AB IgA, Unit <0.5 U/mL; Gliadin AB IgG, Deaminated Negative (Negative); Gliadin AB IgG, Unit <0.4 U/mL
[2023-12-10 23:44] LABS: Amylase 183 U/L (23-121); C Reactive Protein <0.30 mg/dL (0.00-0.80); Lipase 43 U/L (14-63)
[2023-12-11 00:16] LABS: Immunoglobulin E 9.86 IU/mL (0.00-114.00)
== END | disposition home or self-care (01) ==
LOC: LABWHC1 15:32
PROVIDERS: ATTEND Family Medicine
DX: T78.1XXA Other adverse food reactions, not elsewhere classified, initial encounter (principal); R10.9 Unspecified abdominal pain; X58.XXXA Exposure to other specified factors, initial encounter
CPT/HCPCS: 36415; 82150; 82785; 83516; 83690; 85025; 85652; 86140

== ENCOUNTER → 2023-12-21 | Outpatient (CLI) | payer OTHER ==
--- NOTE | 2023-12-21 16:36 | NM ---
EXAMINATION TYPE: NM hepatobiliary w EF DATE OF EXAM: 12/21/2023 COMPARISON: None INDICATION: Abdomen pain TECHNIQUE: After the intravenous administration of 4.5 mCi Tc 99m Mebrofenin hepatobiliary scintigrap hy is performed. Images were obtained immediately post injection. FINDINGS: There is prompt uptake and excretion of radiotracer by the liver. Extrahepatic ducts are identified at 12 minutes. The gallbladder is visualized within 34 minutes. Small bowel activity is noted within 8 minutes. At one hour 8 ounces of oral ensure plus is given to mimic CCK and gallbladder ejection fraction is c alculated at 86 %, which is elevated. (Normal >35% and <80%.). IMPRESSION: 1. Correlate for biliary hyperkinesia.
== END | disposition home or self-care (01) ==
LOC: RADNMMAIN 12:50
PROVIDERS: ATTEND Family Medicine
DX: R10.9 Unspecified abdominal pain (principal)
CPT/HCPCS: 78226; A9537

== ENCOUNTER 2024-03-30 08:18 | Day surgery (SDC) | payer OTHER ==
[~2024-03-30 08:18] MED LIST: LACTATED RINGERS 1,000 ML IV SCH
[2024-03-30] MEDS: LACTATED RINGERS 1,000 ML IV ONE (08:36)
[2024-03-30] MEDS ORDERED: LIDOCAINE 1% INJ 10MG/ML (20 ML MDV) ONE (08:53)
[2024-03-30] MEDS ORDERED: GLYCOPYRROLATE 0.2 MG/ML 2 ML VIAL ONE (08:53)
[2024-03-30] MEDS ORDERED: PROPOFOL 10 MG/ML 20 ML VIAL IV ONE (08:53)
--- NOTE | 2024-03-30 09:01 | P.GSHP ---
History of Present Illness H&P Date: 03/30/24 CHIEF COMPLAINT: Hiatal hernia and change in bowel habits HISTORY OF PRESENT ILLNESS: The patient is a 38-year-old female who presents with hiatal hernia and change in bowel habits. Upper and lower endoscopy were offered for further evaluation and management. PAST MEDICAL HISTORY: Please see list. PAST SURGICAL HISTORY: Please see list. MEDICATIONS: Please see list. ALLERGIES: Please see list. SOCIAL HISTORY: No illicit drug use FAMILY HISTORY: No reports of Crohn disease or ulcerative colitis. REVIEW OF ORGAN SYSTEMS: CONSTITUTIONAL: No reports of fevers or chills. GI: Has severe reflux and change in bowel habits PHYSICAL EXAM: VITAL SIGNS: Stable GENERAL: Well-developed pleasant in no acute distress. HEENT: No scleral icterus. Extraocular movements grossly intact. Moist buccal mucosa. NECK: Supple without lymphadenopathy. CHEST: Unlabored respirations. Equal bilateral excursions. CARDIOVASCULAR: Regular rate and rhythm. Distal 2+ pulses. ABDOMEN: Soft, nondistended. MUSCULOSKELETAL: No clubbing, cyanosis, or edema. ASSESSMENT: 1. Gastroesophageal reflux disease due to hiatal hernia 2. Change in bowel habits PLAN: 1. Recommend proceeding with an upper and lower endoscopy Past Medical History Past Medical History: Eye Disorder, GERD/Reflux, Hypertension, Sleep Apnea/CPAP/BIPAP Additional Past Medical History / Comment(s): increased pressure in eyes, fatty liver NO CPAP USED History of Any Multi-Drug Resistant Organisms: None Reported Past Surgical History: Section Additional Past Surgical History / Comment(s): C/S x3, wisdom teeth pulled Past Anesthesia/Blood Transfusion Reactions: Previous Problems w/ Anesthesia Additional Past Anesthesia/Blood Transfusion Reaction / Comment(s): spinal headache w/one of C/S-had blood patch Smoking Status: Never smoker - Past Family History Father Family Medical History: Cancer Additional Family Medical History / Comment(s): skin Medications and Allergies Home Medications Medication Instructions Recorded Confirmed Type Citalopram Hydrobromide [CeleXA] 20 mg PO DAILY 07/25/22 03/24/24 History Lisinopril-Hctz 10-12.5 mg 1 tab PO DAILY 07/25/22 03/24/24 History [Zestoretic 10-12.5] Allergies Allergy/AdvReac Type Severity Reaction Status Date / Time No Known Allergies Allergy Verified 05/08/24 08:40 Surgical - Exam Vital Signs Temp Pulse Resp BP Pulse Ox 97.2 F L 69 20 139/92 98 03/30/24 08:45 03/30/24 08:45 03/30/24 08:45 03/30/24 08:45 03/30/24 08:45
[2024-03-30 09:05] VITALS: TEMP 97.2
--- NOTE | 2024-03-30 09:09 | P.PCN ---
Date of Procedure: 03/30/24 Description of Procedure: PREOPERATIVE DIAGNOSIS: Hiatal hernia Celiac disease Gastroesophageal reflux disease. Morbid obesity. POSTOPERATIVE DIAGNOSIS: Gastroesophageal reflux disease. Morbid obesity. Gastritis. Diaphragmatic hiatal hernia OPERATION: Esophagogastroduodenoscopy with biopsies along esophagus, antrum and duodenum SURGEON: Maida Hugo MD ANESTHESIA: MAC. INDICATIONS: The patient is a 38-year-old female who presents with reflux disease. Benefits and risks of the procedure were described. Informed consent was obtained. DESCRIPTION: The patient was brought into the endoscopy suite and laid in the left lateral decubitus position. An Olympus gastroscope was passed along the posterior oropharynx down to the distal esophagus where the squamocolumnar junction was encountered at 40 cm from the incisors. The stomach was entered and no bile reflux was found. Additional findings are listed below. Biopsies with cold forceps were obtained of the antrum. The first through third portion of the duodenum was examined. Retroflexion of the scope confirmed Hill grade 3 lower esophageal valve. The squamocolumnar junction demonstrated LA grade B erosive esophagitis. The stomach was desufflated. The patient tolerated the procedure well. FINDINGS: Squamocolumnar junction 39 cm from the incisors. Diaphragmatic hiatus at 40 cm. Hiatal hernia, 1 cm Hill grade 3 lower esophageal valve. LA grade B erosive esophagitis. Biopsies obtained Biopsies obtained of the duodenum. Chronic gastritis with biopsies obtained. RECOMMENDATIONS: Upper endoscopy as needed.
[2024-03-30 09:52] VITALS: BP 128/72; PULSE 84; RESP 16
== END 2024-03-30 10:38 | disposition home or self-care (01) ==
LOC: ORWHC2ENDO 08:18
PROVIDERS: ATTEND Surgery Plastic and Reconstructive Surgery
DX: D72.820 Lymphocytosis (symptomatic) (principal); K21.00 Gastro-esophageal reflux disease with esophagitis, without bleeding; K44.9 Diaphragmatic hernia without obstruction or gangrene; K90.0 Celiac disease; K29.50 Unspecified chronic gastritis without bleeding; I10 Essential (primary) hypertension; E66.01 Morbid (severe) obesity due to excess calories; G47.33 Obstructive sleep apnea (adult) (pediatric); Z98.891 History of uterine scar from previous surgery; Z79.899 Other long term (current) drug therapy; Z98.890 Other specified postprocedural states; Z68.42 Body mass index [BMI] 45.0-49.9, adult
CPT/HCPCS: 81025; 88305; 45380; 43239; J2001; J2704

== ENCOUNTER 2025-01-26 22:10 | Emergency (ER) | payer OTHER ==
[2025-01-26 22:15] VITALS: RESP 18
--- NOTE | 2025-01-26 23:11 | ED ---
Female Urogenital HPI - General Chief complaint: Urogenital Stated complaint: Pelvic pain Time Seen by Provider: 01/26/25 23:06 Source: patient, RN notes reviewed Mode of arrival: ambulatory - History of Present Illness Initial comments: 39-year-old female presented to the ER for evaluation of pelvic discomfort. Patient reports has been ongoing for "a while". She states she was seen by PCP and had urinalysis completed which was negative. She states while at work standing on her feet for extended period of time states she has a pressure sensation to her pelvic region. She states when she sits down and urinates pressure relieves itself. Patient does report a history of PCOS. She denies any dysuria, hematuria or increase in urinary frequency. No concern of STDs. Patient states approximately 1 year ago she stopped taking her control medication and has had very irregular menstrual cycle since then. She states sometimes she will go 2 months without a menstrual cycle and then have 2 cycles within 1 month. Last menstrual cycle was 01 07 25. No vaginal discharge. Patient denies any fevers, chills, cough, congestion, chest pain, shortness of breath, vomiting, constipation/diarrhea or peripheral edema. Patient reports she has been unable to follow-up with INVASIVE PHYSICIAN given insurance issues until recently as she got new insurance. Last Menstrual Period: 01/07/25 - Related Data Home Medications Medication Instructions Recorded Confirmed Citalopram Hydrobromide [CeleXA] 20 mg PO DAILY 07/25/22 03/24/24 Lisinopril-Hctz 10-12.5 mg 1 tab PO DAILY 07/25/22 03/24/24 [Zestoretic 10-12.5] Previous Rx's Medication Instructions Recorded Omeprazole [PriLOSEC] 40 mg PO DAILY #14 cap 03/30/24 Allergies Allergy/AdvReac Type Severity Reaction Status Date / Time No Known Allergies Allergy Verified 01/26/25 22:15 Review of Systems ROS Statement: Those systems with pertinent positive or pertinent negative responses have been documented in the HPI. ROS Other: All systems not noted in ROS Statement are negative. Past Medical History Past Medical History: Eye Disorder, GERD/Reflux, Hypertension, Sleep Apnea/CPAP/BIPAP Additional Past Medical History / Comment(s): increased pressure in eyes, fatty liver NO CPAP USED History of Any Multi-Drug Resistant Organisms: None Reported Past Surgical History: Section Additional Past Surgical History / Comment(s): C/S x3, wisdom teeth pulled Past Anesthesia/Blood Transfusion Reactions: Previous Problems w/ Anesthesia Additional Past Anesthesia/Blood Transfusion Reaction / Comment(s): spinal headache w/one of C/S-had blood patch Past Psychological History: Anxiety Smoking Status: Never smoker - Past Family History Father Family Medical History: Cancer Additional Family Medical History / Comment(s): skin General Exam Limitations: no limitations General appearance: alert, in no apparent distress Respiratory exam: Present: normal lung sounds bilaterally. Absent: respiratory distress, wheezes, rales, rhonchi, stridor Cardiovascular Exam: Present: regular rate, normal rhythm, normal heart sounds. Absent: systolic murmur, diastolic murmur, rubs, gallop, clicks GI/Abdominal exam: Present: soft, normal bowel sounds. Absent: distended, tenderness, guarding, rebound, rigid External exam: Present: normal external exam Speculum exam: Present: normal speculum exam By manual exam: Present: normal by manual exam Neurological exam: Present: alert, oriented X3, CN II-XII intact Skin exam: Present: warm, dry, intact, normal color. Absent: rash Course Vital Signs 01/26/25 01/27/25 22:11 01:58 Temperature 98.8 F 98.4 F Pulse Rate 119 H 87 Respiratory 18 18 Rate Blood Pressure 182/139 158/106 O2 Sat by Pulse 98 97 Oximetry - Reevaluation(s) Reevaluation #1: 01/26/25 23:11 Pelvic exam performed and chaperoned by Fozia Schulte RN. Medical Decision Making - Medical Decision Making Was pt. sent in by a medical professional or institution (, PA, DYE WEIGHER HELPER, urgent care, hospital, or snf...) When possible be specific @ -No Did you speak to anyone other than the patient for history (EMS, parent, family, police, friend...)? What history was obtained from this source @ -No Did you review nursing and triage notes (agree or disagree)? Why? @ -I reviewed and agree with nursing and triage notes Were old charts reviewed (outside hosp., previous admission, EMS record, old EKG, old radiological studies, urgent care reports/EKG's, snf records)? Report findings @ -No old charts were reviewed Differential Diagnosis (chest pain, altered mental status, abdominal pain women, abdominal pain men, vaginal bleeding, weakness, fever, dyspnea, syncope, headache, dizziness, GI bleed, back pain, seizure, CVA, palpatations, mental health, musculoskeletal)? @ -Uterine prolapse, UTI, STD, ovarian cyst... This list is not meant to be a ll-inclusive EKG interpreted by me (3pts min.). @ - None done X-rays interpreted by me (1pt min.). @ -None done CT interpreted by me (1pt min.). @ -None done U/S interpreted by me (1pt. min.). @ -Pelvic ultrasound showing no acute findings. Normal blood flow to bilateral ovaries. No free fluid. What testing was considered but not performed or refused? (CT, X-rays, U/S, labs)? Why? @ -None What meds were considered but not given or refused? Why? @ -Prophylactic STD treatment refused. Patient would like to await test results prior to antibiotic initiation. Did you discuss the management of the patient with other professionals (professionals i.e. , PA, DYE WEIGHER HELPER, lab, RT, psych nurse, community mental health social worker, correspondence transcriber, teacher, immigration services officer, transplant case manager)? Give summary @ -No Was smoking cessation discussed for >3mins.? @ -No Was critical care preformed (if so, how long)? @ -No Were there social determinants of health that impacted care today? How? (Homelessness, low income, unemployed, alcoholism, drug addiction, transportation, low edu. Level, literacy, decrease access to med. care, half-way, rehab)? @ -Patient was uninsured until recently and has not been able to follow-up with INVASIVE PHYSICIAN. Was there de-escalation of care discussed even if they declined (Discuss DNR or withdrawal of care, Hospice)? DNR status @ -No What co-morbidities impacted this encounter? (DM, HTN, Smoking, COPD, CAD, C ancer, CVA, ARF, Chemo, Hep., AIDS, mental health diagnosis, sleep apnea, morbid obesity)? @ -Obese, PCOS Was patient admitted / discharged? Hospital course, mention meds given and route, prescriptions, significant lab abnormalities, going to OR and other pertinent info. @ -Discharge. 39-year-old female presented to the ER for evaluation of pelvic discomfort. Upon rooming, history and physical exam completed. Patient is hypertensive at 182/139 patient reports she has not taken her antihypertensive medications tonight. Vitals otherwise of acceptable limits. Patient in no signs of acute distress nontoxic-appearing. No focal abdominal tenderness to palpation. Pelvic exam performed and chaperoned by Fozia CLINTON. There is no rashs/lesion/wounds, cervical bleeding, abnormal vaginal discharge, or uterine prolapse. No cervical motional tenderness/adnexal masses palpated on bimanual exam. Laboratory studies obtained unremarkable. Serum hCG less than 2.4. Urinalysis with moderate bacteria but sample is contaminated with 8 epithelial cells. Urine will be sent for culture prior to antibiotic initiation, patient is agreeable. Pelvic ultrasound showing no acute findings. Urine gonorrhea, chlamydia and trichomonas pending. Upon reevaluation, patient resting comfortably on stretcher no signs of acute distress. Results discussed with patient, all questions answered. I advised close follow-up with INVASIVE PHYSICIAN, referral given. Strict return parameters discussed. Patient discharged in stable condition. Patient verbally expressed understanding and agreement with care plan. Case discussed with ED attending, Dr. Smith. Undiagnosed new problem with uncertain prognosis? @ -No Drug Therapy requiring intensive monitoring for toxicity (Heparin, Nitro, Insulin, Cardizem)? @ -No Were any procedures done? @ -No Diagnosis/symptom? @ -Pelvic pressure Acute, or Chronic, or Acute on Chronic? @ -Acute Uncomplicated (without systemic symptoms) or Complicated (systemic symptoms)? @ -Uncomplicated Side effects of treatment? @ -No Exacerbation, Progression, or Severe Exacerbation? @ -No Poses a threat to life or bodily function? How? (Chest pain, USA, OR, pneumonia, PE, COPD, DKA, ARF, appy, cholecystitis, CVA, Diverticulitis, Homicidal, Suicidal, threat to staff... and all critical care pts) @ -No - Lab Data Result diagrams: 01/26/25 23:20 01/26/25 23:20 Lab Results 01/26/25 01/26/25 01/26/25 Range/Units 22:59 22:59 23:20 WBC 10.5 (3.8-10.6) k/uL RBC 4.98 (3.80-5.40) m/uL Hgb 14.0 (11.4-16.0) gm/dL Hct 43.4 (34.0-46.0) % MCV 87.0 (80.0-100.0) fL MCH 28.0 (25.0-35.0) pg MCHC 32.2 (31.0-37.0) g/dL RDW 13.4 (11.5-15.5) % Plt Count 361 (150-450) k/uL MPV 7.3 Neutrophils % 74 % Lymphocytes % 18 % Monocytes % 5 % Eosinophils % 2 % Basophils % 0 % Neutrophils # 7.7 (1.3-7.7) k/uL Lymphocytes # 1.9 (1.0-4.8) k/uL Monocytes # 0.5 (0-1.0) k/uL Eosinophils # 0.2 (0-0.7) k/uL Basophils # 0.0 (0-0.2) k/uL Sodium (137-145) mmol/L Potassium (3.5-5.1) mmol/L Chloride (98-107) mmol/L Carbon Dioxide (22-30) mmol/L Anion Gap mmol/L BUN (7-17) mg/dL Creatinine (0.52-1.04) mg/dL Est GFR (CKD-EPI)AfAm (>60 ml/min/1.73 sqM) Est GFR (CKD-EPI)NonAf (>60 ml/min/1.73 sqM) Glucose (74-99) mg/dL Calcium (8.4-10.2) mg/dL Total Bilirubin (0.2-1.3) mg/dL AST (14-36) U/L ALT (4-34) U/L Alkaline Phosphatase (38-126) U/L Total Protein (6.3-8.2) g/dL Albumin (3.5-5.0) g/dL HCG, Quant mIU/mL Urine Color Yellow Urine Appearance Cloudy H (Clear) Urine pH 5.5 (5.0-8.0) Ur Specific [place] 1.045 H (1.001-1.035) Urine Protein Trace H (Negative) Urine Glucose (UA) Negative (Negative) Urine Ketones Negative (Negative) Urine Blood Small H (Negative) Urine Nitrite Negative (Negative) Urine Bilirubin Negative (Negative) Urine Urobilinogen <2.0 (<2.0) mg/dL Ur Leukocyte Esterase Negative (Negative) Urine RBC 2 (0-5) /hpf Urine WBC 13 H (0-5) /hpf Ur Squamous Epith Cells 8 H (0-4) /hpf Amorphous Sediment Rare H (None) /hpf Urine Bacteria Moderate H (None) /hpf Hyaline Casts 1 (0-2) /lpf Urine Mucus Many H (None) /hpf Urine HCG, Qual Not Detected (Not Detectd) 01/26/25 Range/Units 23:20 WBC (3.8-10.6) k/uL RBC (3.80-5.40) m/uL Hgb (11.4-16.0) gm/dL Hct (34.0-46.0) % MCV (80.0-100.0) fL MCH (25.0-35.0) pg MCHC (31.0-37.0) g/dL RDW (11.5-15.5) % Plt Count (150-450) k/uL MPV Neutrophils % % Lymphocytes % % Monocytes % % Eosinophils % % Basophils % % Neutrophils # (1.3-7.7) k/uL Lymphocytes # (1.0-4.8) k/uL Monocytes # (0-1.0) k/uL Eosinophils # (0-0.7) k/uL Basophils # (0-0.2) k/uL Sodium 138 (137-145) mmol/L Potassium 4.1 (3.5-5.1) mmol/L Chloride 107 (98-107) mmol/L Carbon Dioxide 18 L (22-30) mmol/L Anion Gap 13 mmol/L BUN 21 H (7-17) mg/dL Creatinine 0.55 (0.52-1.04) mg/dL Est GFR (CKD-EPI)AfAm >90 (>60 ml/min/1.73 sqM) Est GFR (CKD-EPI)NonAf >90 (>60 ml/min/1.73 sqM) Glucose 155 H (74-99) mg/dL Calcium 9.1 (8.4-10.2) mg/dL Total Bilirubin 0.4 (0.2-1.3) mg/dL AST 24 (14-36) U/L ALT 23 (4-34) U/L Alkaline Phosphatase 103 (38-126) U/L Total Protein 7.0 (6.3-8.2) g/dL Albumin 4.1 (3.5-5.0) g/dL HCG, Quant <2.4 mIU/mL Urine Color Urine Appearance (Clear) Urine pH (5.0-8.0) Ur Specific [place] (1.001-1.035) Urine Protein (Negative) Urine Glucose (UA) (Negative) Urine Ketones (Negative) Urine Blood (Negative) Urine Nitrite (Negative) Urine Bilirubin (Negative) Urine Urobilinogen (<2.0) mg/dL Ur Leukocyte Esterase (Negative) Urine RBC (0-5) /hpf Urine WBC (0-5) /hpf Ur Squamous Epith Cells (0-4) /hpf Amorphous Sediment (None) /hpf Urine Bacteria (None) /hpf Hyaline Casts (0-2) /lpf Urine Mucus (None) /hpf Urine HCG, Qual (Not Detectd) - Radiology Data Radiology results: report reviewed, image reviewed Disposition Clinical Impression: Pelvic pressure in female Disposition: HOME SELF-CARE Condition: Stable Additional Instructions: Follow-up with INVASIVE PHYSICIAN. Return to the ER for any new or worse concerns. Is patient prescribed a controlled substance at d/c from ED?: No Referrals: Toribio Arnett MD [Primary Care Provider] - 1-2 days Latrice Stewart DO [Doctor of Osteopathic Medicine] - 1-2 days Time of Disposition: 01:41
[2025-01-26 23:14] LABS: Amorphous Sediment,Urine Rare /hpf; Appearance,Urine Cloudy (Clear); Bacteria,Urine Moderate /hpf; Bilirubin,Urine Negative (Negative); Blood,Urine Small (Negative); Color,Urine Yellow; Glucose,Urine (UA) Negative (Negative); Hyaline Casts,Urine 1 /lpf (0-2); Ketones,Urine Negative (Negative); Leukocyte Esterase,Urine Negative (Negative); Mucus,Urine Many /hpf; Nitrite,Urine Negative (Negative); PH, Urine 5.5 (5.0-8.0); Protein,Urine Trace (Negative); RBC,Urine 2 /hpf (0-5); Specific Gravity,Urine 1.045 (1.001-1.035); Squamous Epithelial Cell,Urine 8 /hpf (0-4); Urobilinogen,Urine <2.0 mg/dL (<2.0); WBC,Urine 13 /hpf (0-5)
[2025-01-27 00:05] LABS: Basophils % (A) 0 %; Eosinophils # (A) 0.2 k/uL (0-0.7); Eosinophils % (A) 2 %; HCT 43.4 % (34.0-46.0); Lymphocytes # (A) 1.9 k/uL (1.0-4.8); Lymphocytes % (A) 18 %; MCHC 32.2 g/dL (31.0-37.0); Mean Platelet Volume 7.3; Monocytes # (A) 0.5 k/uL (0-1.0); Monocytes % (A) 5 %; Neutrophils # (A) 7.7 k/uL (1.3-7.7); Neutrophils % (A) 74 %; Platelet Count 361 k/uL (150-450); RBC 4.98 m/uL (3.80-5.40); RDW 13.4 % (11.5-15.5); WBC 10.5 k/uL (3.8-10.6)
[2025-01-27 00:12] LABS: ALT 23 U/L (4-34); AST 24 U/L (14-36); African American GFR (CKD) >90 (>60 ml/min/1.73 sqM); Albumin 4.1 g/dL (3.5-5.0); Alkaline Phosphatase 103 U/L (38-126); Anion Gap 13 mmol/L; Blood Urea Nitrogen 21 mg/dL (7-17); Calcium 9.1 mg/dL (8.4-10.2); Carbon Dioxide 18 mmol/L (22-30); Chloride 107 mmol/L (98-107); Glucose 155 mg/dL (74-99); Non-African American GFR(CKD) >90 (>60 ml/min/1.73 sqM); Potassium 4.1 mmol/L (3.5-5.1); Sodium 138 mmol/L (137-145); Total Bilirubin 0.4 mg/dL (0.2-1.3)
[2025-01-27 00:28] LABS: HCG,Quantitative Serum <2.4 mIU/mL
--- NOTE | 2025-01-27 01:25 | US ---
EXAM: US Pelvis Transvaginal CLINICAL HISTORY: ITS.REASON US Reason: pelvic pressure TECHNIQUE: Real-time transvaginal pelvic ultrasound with image documentation. Transvaginal imaging was used for better evaluation of the endometrium and adnexa. COMPARISON: No relevant prior studies available. FINDINGS: Uterus/cervix: No myometrial mass. Normal endometrial thickness. Right ovary: Unremarkable. No mass. Normal blood flow. Left ovary: Unremarkable. No mass. Normal blood flow. Free fluid: No free fluid. IMPRESSION: No acute findings.
[2025-01-27] MEDS: ACETAMINOPHEN TAB 325 MG TAB PO STA (01:46)
[2025-01-27 02:00] VITALS: BP 158/106; PULSE 87; TEMP 98.4
[2025-01-28 10:58] LABS: C. trachomatis,PCR Negative (Negative); N. gonorrhoeae,PCR Negative (Negative)
== END 2025-01-27 02:00 | disposition home or self-care (01) ==
LOC: EC 22:10
DX: R10.2 Pelvic and perineal pain (principal); E66.9 Obesity, unspecified; E28.2 Polycystic ovarian syndrome
CPT/HCPCS: 36415; 76830; 76856; 80053; 81001; 81025; 84702; 85025; 87086; 87491; 87591; 93975; 99283; 99284

== ENCOUNTER → 2025-03-28 | Outpatient (CLI) | payer OTHER | END | disposition home or self-care (01) | LOC: LABWHC1 13:07 | PROVIDERS: ATTEND Surgery Plastic and Reconstructive Surgery | DX: Z53.9 Procedure and treatment not carried out, unspecified reason (principal) ==